=== PATIENT | male | born 1955 | race Caucasian/White ===

== ENCOUNTER → 2020-02-04 12:11 | Outpatient (BNVA) | payer MEDICAID, MEDICARE, SELFPAY | PROVIDERS: PCP Family Medicine; Visit Provider Physician Assistant | DX: Z76.89 Persons encountering health services in other specified circumstances (principal) ==

== ENCOUNTER 2020-05-22 09:25 | Outpatient (REF) | payer MEDICARE, MEDICAID, SELFPAY ==
[2020-05-22 10:19] LABS: MANUAL DIFF FLAG NO
[2020-05-22 10:31] LABS: Estimated Average Glucose 123 mg/dL; Hemoglobin A1C 150.3157 umol/L; Hemoglobin A1c % 5.9 %
[2020-05-22 10:34] LABS: Basophils Absolute Auto 0.1 X10*3/uL (0.0-0.2); Basophils Percent Auto 0.7 % (0-2); Eosinophils Absolute Auto 0.2 X10*3/uL (0.0-0.4); Eosinophils Percent Auto 3.5 % (0-4); Hematocrit 41.5 % (42-52); Hemoglobin 13.6 g/dl (14.0-18.0); Imm Gran Abs Auto 0.02 X10*3/uL (0.00-0.03); Imm Gran Pct Auto 0.3 % (0.0-0.4); Lymphocytes Absolute Auto 2.6 X10*3/uL (1.2-4.9); Lymphocytes Percent Auto 37.2 % (20-40); Mean Corpuscular HGB Conc 32.8 g/dl (31.0-36.0); Mean Corpuscular Hemoglobin 28.8 pg (27.0-33.0); Mean Corpuscular Volume 87.9 fL (80-98); Mean Platelet Volume 10.7 fL (9.4-12.4); Monocytes Absolute Auto 0.5 X10*3/uL (0.1-1.2); Monocytes Percent Auto 7.8 % (2-11); Neutrophils Absolute Auto 3.5 X10*3/uL (2.0-8.3); Neutrophils Percent Auto 50.5 % (45-73); Platelet Count 243 X10*3/uL (160-400); Red Blood Count 4.72 X10*6/uL (4.60-5.80); Red Cell Distribution Width 14.2 % (11.0-16.0); White Blood Count 6.9 X10*3/uL (4.8-10.8)
[2020-05-22 10:57] LABS: Alanine Aminotransferase 13 U/L (0-40); Albumin Level 4.4 g/dL (3.5-5.0); Alkaline Phosphatase 82 U/L (39-117); Anion Gap 11 (12-20); Aspartate Amino Transferase 12 U/L (5-37); Bilirubin Direct 0.2 mg/dL (0.0-0.5); Bilirubin Total 0.5 mg/dL (0.0-1.0); Blood Urea Nitrogen 18 mg/dL (9-16); Calcium 9.2 mg/dL (8.4-10.2); Carbon Dioxide 27 mmol/L (22-29); Chloride 105 mmol/L (96-108); Cholesterol 167 mg/dL; Estimated Glomerular Filt Rate > 60; Glucose Random 113 mg/dL (60-115); HDL Cholesterol 59 mg/dL; LDL Cholesterol Calculated 91 mg/dl; Potassium 4.1 mmol/l (3.3-5.1); Sodium 139 mmol/L (135-145); Triglycerides 87 mg/dL
[2020-05-22 11:04] LABS: Free T4 (Free Thyroxine) 1.18 ng/dL (0.71-1.85); Thyroid Stimulating Hormone 1.04 uIU/mL (0.32-4.0)
[2020-05-22 11:15] LABS: Syphilis Screen Nonreactive (Nonreactive)
[2020-05-22 11:23] LABS: ~HepC Num1 0.18 S/CO (0.00-0.79); ~Hepatitis C Antibody Nonreactive (Nonreactive)
[2020-05-22 11:24] LABS: HBS Num1 0.62 mIU/mL (0-7.99); HBsAGNum1 0.18 S/CO (0.00-0.99); Hepatitis B Surface Antigen Negative (Negative); ~Hepatitis B Surface Antibody NONREACTIVE (Nonreactive)
[2020-05-22 11:33] LABS: HIV AB/AG Nonreactive (Nonreactive); HIV Num 1 0.22 S/CO (0.00-0.99)
[2020-05-22 11:40] LABS: Folate 10.9 ng/mL (> or = 4.0); Vitamin B12 225 pg/mL (200-900)
[2020-05-23 13:26] LABS: C. trachomatis RNA TMA NOT DETECTED (NOT DETECTED); N. gonorrhoeae RNA TMA NOT DETECTED (NOT DETECTED)
== END 2020-05-22 09:26 | disposition home or self-care (01) ==
LOC: HO.LAB 09:25
PROVIDERS: PCP Family Medicine; Visit Provider Family Medicine
DX: R41.3 Other amnesia (principal)
CPT/HCPCS: 36415; 80048; 80061; 80076; 82306; 82607; 82746; 83036; 84439; 84443; 85025; 86706; 86780; 86803; 87340; 87389; 87491; 87591

== ENCOUNTER 2020-05-29 14:15 | Outpatient (REF) | payer MEDICARE, MEDICAID, SELFPAY ==
--- NOTE | 2020-05-29 14:30 | MR_ITS ---
EXAMINATION: MR BRAIN WITHOUT CONTRAST CLINICAL INFORMATION: Progressive supranuclear ophthalmoplegia. COMPARISON: CT head from 09/16/2019. TECHNIQUE: MRI of the brain was obtained using routine sequences without contrast. FINDINGS: No focal restricted diffusion is demonstrated to suggest acute or subacute cerebral ischemia. No evidence of acute or chronic hemorrhagic products on heme-sensitive imaging. Mild basal ganglia mineralization. Scattered periventricular and deep white matter T2 FLAIR hyperintensities consistent with mild to moderate underlying microangiopathy. Proportional prominence of the ventricles and sulcal spaces without evidence of obstructive hydrocephalus. There is relative volume loss of the brain relative to the lselye. No additional abnormal mass effect. No midline shift. Normal appearance of the pituitary gland. Normal appearance of the cerebellum. Normal positioning of the cerebellar tonsils. Normal arterial and venous vascular flow voids are present. Normal, homogeneous marrow signal. Mild mucosal thickening of the paranasal sinuses. No signal abnormalities within the mastoids. MR/MR head/brain wo con IMPRESSION: 1. No acute intracranial abnormalities. 2. Relative decrease in volume of the midbrain relative to the leslye. 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 3. Mild to moderate underlying microangiopathy and generalized cerebral volume loss.
== END 2020-05-29 14:16 | disposition home or self-care (01) ==
LOC: HO.MRI 14:15
PROVIDERS: Visit Provider Psychiatry & Neurology Neurology
DX: G23.1 Progressive supranuclear ophthalmoplegia [Steele-Richardson-Olszewski] (principal)
CPT/HCPCS: 70551

== ENCOUNTER → 2020-07-27 12:56 | Outpatient (REF) | payer MEDICARE, MEDICAID, SELFPAY | LOC: HO.SL 12:56 | PROVIDERS: PCP Family Medicine; Visit Provider Family Medicine | DX: G47.30 Sleep apnea, unspecified (principal) | CPT/HCPCS: 95806 ==

== ENCOUNTER 2020-07-30 12:35 | Outpatient (REF) | payer MEDICARE, MEDICAID, SELFPAY ==
[2020-07-31 10:08] LABS: SARS COV2 PCR INHOUSE NEGATIVE (Negative)
== END 2020-07-30 12:36 | disposition home or self-care (01) ==
LOC: HO.LAB 12:35
PROVIDERS: Visit Provider Internal Medicine
DX: Z20.822 Contact with and (suspected) exposure to COVID-19 (principal)
CPT/HCPCS: C9803; U0003

== ENCOUNTER 2020-11-23 17:47 | Emergency (ER) | payer MEDICARE, MEDICAID, SELFPAY ==
--- NOTE | ~2020-11-23 | CT_ITS ---
EXAM: CT HEAD WITHOUT CONTRAST CT CERVICAL SPINE INDICATION: Head trauma, fall TECHNIQUE: A noncontrast CT scan was performed from the skull base to the vertex. A noncontrast CT scan of the cervical spine was performed from the base of the skull through T1. Coronal and sagittal reformats were obtained at the acquisition workstation. Dose length product is 918 mGy-cm. COMPARISON: Brain MR 05/29/2020, head CT 09/16/2019, head and cervical spine CT 01/09/2019. FINDINGS: Head: No evidence of acute intracranial hemorrhage or extra-axial fluid collection. No evidence of acute territorial infarction. No evidence of mass lesion, mass effect or midline shift. Periventricular and subcortical white matter hypodensities, a nonspecific finding but most commonly due to chronic small vessel ischemic disease. This is similar when compared with prior studies. The ventricles are symmetric in configuration and basal cisterns are patent. The calvarium is intact. Limited views of the paranasal sinuses are unremarkable. Mastoid air cells are well aerated and middle ear cavities are clear. Orbits unremarkable. Cervical Spine: Cervical vertebral bodies are normal in height and alignment. Multilevel degenerative disc disease. Minimal uncovertebral spurring and small anterior degenerative osteophytes throughout the cervical spine. Facet arthropathy. Spinous processes are intact and well aligned. The atlantodens intervals within normal limits. The craniocervical junction is unremarkable. No prevertebral soft tissues swelling. The dens process is intact. The paravertebral muscles and fat planes are preserved. Limited views of the lung apices do not demonstrate any acute findings. The visualized portions of the thyroid gland are unremarkable. No bulky cervical adenopathy. CT/CT cervical spine wo con IMPRESSION: 1. No evidence of acute intracranial abnormality. 2. Degenerative changes of the cervical spine without CT evidence of acute injury.
[2020-11-23 17:54] VITALS: BP 108/80; BP 123/83; PULSE 90; PULSE 94; RESP 16; TEMP 36.6; O2SAT 97; O2SAT 98; BMI 21.4
--- NOTE | 2020-11-23 18:08 | ED_ITS ---
HPI - Fall General Chief Complaint: Fall <CLAU Orosco - Last Filed: 11/23/20 21:18> Stated Complaint: MECHANICAL FALL,LIP LAC,FACIAL PAIN <CLAU Orosco Last Filed: 11/23/20 21:18> Time Seen by Provider: 11/23/20 18:00 <CLAU Orosco - Last Filed: 11/23/20 21:18> Source: patient and EMS <CLAU Orosco Last Filed: 11/23/20 21:18> Mode of arrival: EMS <CLAU Orosco - Last Filed: 11/23/20 21:18> History of Present Illness HPI Narrative: 64-year-old male with a past medical history of asthma, supranuclear o phthalmoplegia, COPD, failure to thrive, opioid abuse, alcohol abuse, cognitive impairment, coming from [facility] for lip/facial lacerations s/p mechanical fall out of bed, patient reports was reaching for dinner tray sitting on edge of bed and lost balance falling forward off bed, + hit head, denies LOC, incident was unwitnessed however staff heard patient/try a fall and found patient on ground awake and alert. Denies headache, CP/SOB, abdominal pain, nausea/vomiting. Does not take anticoagulation Tetanus unknown <CLAU Orosco Last Filed: 11/23/20 21:18> Related Data Home Medications: Home Medications Medication Instructions Recorded Confirmed ammonium lactate 12 % topical cream 1 applic TOPICAL DAILY 01/29/20 02/01/20 baclofen 10 mg tablet 10 mg PO DAILY 01/29/20 02/01/20 clonazepam 0.5 mg tablet 0.25 mg PO BEDTIME 01/29/20 02/01/20 docusate sodium 100 mg capsule 100 mg PO DAILY 01/29/20 02/01/20 fluticasone propionate 100 2 inh INHALATION BID 01/29/20 02/01/20 mcg/actuation blister powder for inhalation ipratropium 18 mcg-albuterol 103 spray INHALATION 01/29/20 02/01/20 mcg/actuation aerosol inhaler loratadine 5 mg/5 mL oral solution 10 ml PO DAILY 01/29/20 02/01/20 omeprazole 20 mg tablet,delayed 40 mg PO DAILY 01/29/20 02/01/20 release oxycodone 10 mg tablet 10 mg PO BID PRN 01/29/20 02/01/20 oxycodone 80 mg tablet,crush 80 mg PO BID 01/29/20 02/01/20 resistant,extended release 12 hr sertraline 50 mg tablet 50 mg PO DAILY 01/29/20 02/01/20 sildenafil 50 mg tablet 50 mg PO DAILY PRN 01/29/20 02/01/20 triamcinolone acetonide 0.1 % 1 applic DENTAL BID 01/29/20 02/01/20 dental paste acetaminophen 325 mg capsule 650 mg PO Q6H PRN 02/04/20 albuterol sulfate 90 mcg/actuation 2 puff INHALATION Q6H PRN 02/04/20 aerosol inhaler aspirin 325 mg tablet 325 mg PO BID 02/04/20 beclomethasone dipropionate 80 mcg INHALATION 02/04/20 mcg/actuation aerosol inhaler bisacodyl 10 mg rectal suppository 10 mg IN DAILY PRN 02/04/20 cholecalciferol (vitamin D3) 125 125 mcg PO DAILY 02/04/20 mcg (5,000 unit) tablet ipratropium 20 mcg-albuterol 100 1 puff INHALATION Q6H 02/04/20 mcg/actuation mist for inhalation magnesium hydroxide 400 mg/5 mL 5 ml PO DAILY PRN 02/04/20 oral suspension morphine 60 mg tablet,oral ONLY mg PO 02/04/20 (not feeding tubes) naloxone 4 mg/actuation nasal spray 4 mg INTRANASAL Q3M PRN 02/04/20 Previous Rx's Medication Instructions Recorded amoxicillin-pot clavulanate 1 tab PO Q12H 7 Days #14 tab 11/23/20 [Augmentin] <CLAU Orosco - Last Filed: 11/23/20 21:18> Allergies/Adverse Reactions: Allergies Allergy/AdvReac Type Severity Reaction Status Date / Time No Known Allergies Allergy Verified 11/23/20 18:01 [No Known Allergies*] <CLAU Orosco - Last Filed: 11/23/20 21:18> Review of Systems Review of Systems: Constitutional: No Fever, No Chills ENT/Mouth: No Nasal Congestion, No sore throat, No Rhinorrhea Eyes: No Eye Pain, No Swelling Cardiovascular: No Chest Pain, No SOB Respiratory: No Cough, No Dyspnea Gastrointestinal: No Nausea, No Vomiting, No Abdominal pain Genitourinary: No Dysuria Musculoskeletal: No joint pain, No Myalgias, No Joint Swelling Skin: + Skin Lesions, No rash Neuro: No Weakness, No Loss of Consciousness, No Dizziness, No Headache <CLAU Orosco Last Filed: 11/23/20 21:18> Yes all other systems are reviewed and are negative <CLAU Orosco - Last Filed: 11/23/20 21:18> [facility] Past Medical History Attestation statement: The following information was validated with the patient. <CLAU Orosco Last Filed: 11/23/20 21:18> Medical History: Medical History Asthma Constipation GERD (gastroesophageal reflux disease) History of fracture of right hip Low back pain <CLAU Orosco - Last Filed: 11/23/20 21:18> Surgical History: Surgical History History of colonoscopy History of hernia repair History of rhinoplasty <CLAU Orosco Last Filed: 11/23/20 21:18> Family History Family History: Family History Father Coronary artery disease Type 2 diabetes mellitus Myocardial infarct Mother Type 2 diabetes mellitus Pancreatic cancer <CLAU Orosco Last Filed: 11/23/20 21:18> Social History Social History: Social History Advance Directives: No Advance Directives Information Provided: No <CLAU Orosco Last Filed: 11/23/20 21:18> Physical Exam Vital Signs: Vital Signs: Last Vital Signs Temp 97.8 F 11/23/20 17:54 Pulse 94 11/23/20 17:54 Resp 16 11/23/20 17:54 BP 108/80 11/23/20 17:54 Pulse Ox 97 11/23/20 17:54 Body Mass Index 21.4 <CLAU Orosco Last Filed: 11/23/20 21:18> Vital Signs: Last Vital Signs Temp 97.8 F 11/23/20 17:54 Pulse 94 11/23/20 17:54 Resp 16 11/23/20 17:54 BP 108/80 11/23/20 17:54 Pulse Ox 97 11/23/20 17:54 Body Mass Index 21.4 <Shemar Downs MD - Last Filed: 11/23/20 20:07> Const: General: cooperative, healthy appearing and no acute distress <CLAU Orosco - Last Filed: 11/23/20 21:18> Orientation/consciousness: patient oriented x3 <CLAU Orosco - Last Filed: 11/23/20 21:18> Limitations: no limitations <CLAU Orosco - Last Filed: 11/23/20 21:18> HENMT: Other: 1 cm Superficial laceration noted lateral to left orbit and 1 cm laceration infraorbitally Deep left upper wedge laceration. No dental fractures or gingival disruption. No loose teeth. <CLAU Orosco - Last Filed: 11/23/20 21:18> Head: Yes normal to inspection, No Tamez's sign and No raccoon eyes <CLAU Orosco - Last Filed: 11/23/20 21:18> Ears: hearing grossly normal bilaterally <CLAU Orosco - Last Filed: 11/23/20 21:18> General nose exam: Normal external nose present <CLAU Orosco - Last Filed: 11/23/20 21:18> Face and sinus: Yes normal facial exam <CLAU Orosco - Last Filed: 11/23/20 21:18> Mouth: Normal oral and palatal mucosa present <CLAU Orosco - Last Filed: 11/23/20 21:18> Eyes: General: appearance normal, both eyes and all related structures <CLAU Orosco - Last Filed: 11/23/20 21:18> EOM: EOMs intact bilaterally <CLAU Orosco - Last Filed: 11/23/20 21:18> Neck: Neck: Yes normal visual inspection and Yes no meningeal signs <CLAU Orosco - Last Filed: 11/23/20 21:18> Resp: Effort & Inspection: normal respiratory effort <Nasrin Pan PA - Last Filed: 11/23/20 21:18> Auscultation: clear to auscultation bilaterally <Nasrin Pan PA - Last Filed: 11/23/20 21:18> Cardio: Rate: regular rate <Nasrin Pan PA - Last Filed: 11/23/20 21:18> Heart sounds: S1 normal heart sound present and S2 normal heart sound present <Nasrin Pan PA - Last Filed: 11/23/20 21:18> GI: Inspection: Yes normal to inspection <Nasrin Pan PA - Last Filed: 11/23/20 21:18> Palpation (GI): Soft to palpation, nontender, no guarding and not rigid <Nasrin Pan PA - Last Filed: 11/23/20 21:18> Skin: Rashes: no rashes <Nasrin Pan PA - Last Filed: 11/23/20 21:18> Wounds: no wounds <Nasrin Pan PA - Last Filed: 11/23/20 21:18> Neuro: Other: Cognition at patient's baseline <CLAU Orosco - Last Filed: 11/23/20 21:18> General: patient oriented x3, tone normal, moves all extremities and no meningeal signs <CLAU Orosco - Last Filed: 11/23/20 21:18> Extrem: General: Yes normal to inspection <Nasrin Pan PA - Last Filed: 11/23/20 21:18> Course Course Course Narrative: CT head/brain wo con IMPRESSION: 1. No evidence of acute intracranial abnormality. 2. Degenerative changes of the cervical spine without CT evidence of acute injury. >> results discussed with patient, plan to DC home back to [facility] <CLAU Orosco - Last Filed: 11/23/20 21:18> discussed plan with MATTIE, lip sutured well. Will dc home <Shemar Downs MD - Last Filed: 11/23/20 20:07> Procedures Laceration Laceration 1: Site: face <CLAU Orosco - Last Filed: 11/23/20 21:18> Side (If applicable): left <Nasrin [facility] [place] - Last Filed: 11/23/20 21:18> Size (cm): 1 <Nasrin Pan PA - Last Filed: 11/23/20 21:18> Description: linear <Nasrin Pan PA - Last Filed: 11/23/20 21:18> Depth: simple, single layer <Nasrin Pan PA - Last Filed: 11/23/20 21:18> Pre-repair: wound explored <Nasrin Pan PA - Last Filed: 11/23/20 21:18> Skin layer closed with: other (dermabond) <Nasrin Viviane PA - Last Filed: 11/23/20 21:18> Laceration 2: Site: face <Nasrin Pan PA - Last Filed: 11/23/20 21:18> Size (cm): 1 <Nasrin Pan PA - Last Filed: 11/23/20 21:18> Description: linear <Nasrin Pan PA - Last Filed: 11/23/20 21:18> Depth: simple, single layer <Nasrin Pan PA - Last Filed: 11/23/20 21:18> Pre-repair: wound explored <Nasrin Pan PA - Last Filed: 11/23/20 21:18> Skin layer closed with: other (Dermabond) <Nasrin Pan PA - Last Filed: 11/23/20 21:18> Laceration 3: Site: lip <Nasrin Pan PA - Last Filed: 11/23/20 21:18> Size (cm): 1 <Nasrin Pan PA - Last Filed: 11/23/20 21:18> Description: irregular, involves edwina border and involves lid margin <Nasrin Pan PA - Last Filed: 11/23/20 21:18> Depth: simple, single layer <Nasrin Pan PA - Last Filed: 11/23/20 21:18> Local Anesthetic: lidocaine 1% <Nasrin Pan PA - Last Filed: 11/23/20 21:18> Amount of anesthesia used (mL): 2 <Nasrin Pan PA - Last Filed: 11/23/20 21:18> Pre-repair: wound explored and irrigated extensively <CLAU Orosco - Last Filed: 11/23/20 21:18> Skin layer closed with: nylon <CLAU Orosco - Last Filed: 11/23/20 21:18> Size (cm): 6-0 <CLAU Orosco - Last Filed: 11/23/20 21:18> Number of sutures: 3 <CLAU Orosco - Last Filed: 11/23/20 21:18> Technique: simple, interrupted <CLAU Orosco - Last Filed: 11/23/20 21:18> MDM - Fall MDM Narrative Medical decision making narrative: 64-year-old male with a past medical history of asthma, supranuclear ophthalmoplegia, COPD, failure to thrive, opioid abuse, alcohol abuse, cognitive impairment, coming from [facility] for lip/facial lacerations s/p mechanical fall out of bed. On exam vital signs stable, NAD/nontoxic-appearing, physical exam as above. Will Dermabond facial lacerations and suture lip laceration. Plan: Head/C-spine CT, repair wounds, update tetanus, prophylactic antibiotic <CLAU Orosco - Last Filed: 11/23/20 21:18> Discharge Plan Discharge Clinical Impression: Fall, Head injury Lip laceration Qualifiers: Encounter type: initial encounter Qualified Code(s): S01.511A - Laceration without foreign body of lip, initial encounter <CLAU Orosco - Last Filed: 11/23/20 21:18> Patient Disposition: er LT <CLAU Orosco - Last Filed: 11/23/20 21:18> Instructions: Facial Laceration (ED) <CLAU Orosco - Last Filed: 11/23/20 21:18> Additional Instructions: You need to return to any emergency department or urgent care to have your 3 stitches taken out in 5 days Augmentin is an antibiotic, please take as prescribed Please eat soft food for the next few days to avoid biting on your swollen lip If area begins to look infected, is red, there is drainage, you fever please return to the ED Your other wounds were skin glued, do not pick at the skin glue, this will fall off on its own Please follow-up with her doctor <CLUA Orosco - Last Filed: 11/23/20 21:18> Prescriptions: New amoxicillin-pot clavulanate [Augmentin] 875-125 mg tablet 1 tab PO Q12H 7 Days Qty: 14 RF: 0 No Action triamcinolone acetonide 0.1 % paste 1 applic dental BID RF: 0 ammonium lactate 12 % cream 1 applic topical DAILY RF: 0 clonazepam [Klonopin] 0.5 mg tablet 0.25 mg PO BEDTIME RF: 0 ipratropium-albuterol 18-103 mcg/actuation aerosol inhalation RF: 0 oxycodone [OxyContin] 80 mg tablet,oral only,ext.rel.12 hr 80 mg PO BID RF: 0 oxycodone 10 mg tablet 10 mg PO BID PRNRF: 0 omeprazole 20 mg tablet,delayed release (DR/EC) 40 mg PO DAILY RF: 0 baclofen 10 mg tablet 10 mg PO DAILY RF: 0 sildenafil [Viagra] 50 mg tablet 50 mg PO DAILY PRNRF: 0 sertraline 50 mg tablet 50 mg PO DAILY RF: 0 loratadine [Claritin] 5 mg/5 mL solution 10 ml PO DAILY RF: 0 docusate sodium [Colace] 100 mg capsule 100 mg PO DAILY RF: 0 Flovent Diskus 100 mcg/actuation blister with device 2 inh inhalation BID RF: 0 <CLAU Orosco - Last Filed: 11/23/20 21:18> Referrals: ED Physician,Generic [Emergency Provider] - 5 days (For suture removal) <CLAU Orosco - Last Filed: 11/23/20 21:18>
[2020-11-23] MEDS: Lidocaine HCl 1 % MPF 5 ML VIAL SUBCUT (19:45)
--- NOTE | 2020-11-23 19:56 | PC.NURSE ---
CLAU Pan at bedside applying dermabond to laceration. Wound cleansed with saline by Clay (EDPCT). Will continue to monitor.
[2020-11-23] MEDS: Amoxicillin/Potassium Clav 875 MG TABLET PO (21:00)
[2020-11-23] MEDS: Diphth,Pertus(ACell),Tet Adult 0.5 ML SYRINGE IM (21:00)
--- NOTE | 2020-11-23 21:33 | PC.NURSE ---
Preparing for transfer back to [facility]. Awaiting ambulance for transfer.
== END 2020-11-23 22:15 ==
PROVIDERS: Emergency Provider Emergency Medicine; PCP Family Medicine
DX: S01.511A Laceration without foreign body of lip, initial encounter (principal); S01.81XA Laceration without foreign body of other part of head, initial encounter; W06.XXXA Fall from bed, initial encounter; Y93.89 Activity, other specified; Y92.122 Bedroom in nursing home as the place of occurrence of the external cause; Y99.9 Unspecified external cause status
CPT/HCPCS: 12013; 70450; 72125; 90471; 90715; 99283; 99284

== ENCOUNTER 2020-12-27 17:47 | Emergency (ER) | payer MEDICARE, MEDICAID, SELFPAY ==
--- NOTE | ~2020-12-27 | XR_ITS ---
EXAMINATION: XR CHEST CLINICAL INFORMATION: Chest pain following trauma in a fall COMPARISON: 01/14/2020 TECHNIQUE: Frontal view of the chest was obtained. FINDINGS: There is stable blunting of the right costophrenic angle. No acute pleural or pulmonary disease is appreciated. The mediastinum is stable. There is no vascular congestion. No rib fracture or other acute chest injury is evident. XR/XR chest 1V IMPRESSION: No active disease in the chest. No significant change.
--- NOTE | ~2020-12-27 | CT_ITS ---
EXAMINATION: CT HEAD WITHOUT CONTRAST CT CERVICAL SPINE WITHOUT CONTRAST CLINICAL INFORMATION: Fall. Head strike. COMPARISON: 11/23/2020 TECHNIQUE: Multidetector CT imaging of the head and cervical spine was performed without the use of intravenous contrast. Multiplanar reformats are reviewed. This CT examination was performed using dose optimization techniques as appropriate, variously including the following: *Automated exposure control *Adjustment of mA and/or kV according to patient size (this includes techniques or standardized protocols for targeted exams where dose is matched to indication/reason for exam; i.e. extremities or head) *Use of iterative reconstruction technique DLP: 1001 mGy-cm. FINDINGS: There is no evidence of acute intracranial hemorrhage or territorial infarction. No abnormal mass effect or midline shift is seen. [place] to white matter differentiation is well preserved. No extra-axial fluid collections are identified. The ventricles are normal in size. Stable patchy subcortical and periventricular white matter low-attenuation changes reflective of chronic white matter small vessel ischemic disease. The osseous structures and soft tissues are normal. The mastoid air cells and visualized portions of the paranasal sinuses are well-aerated. Atlantooccipital alignment is maintained. The vertebral bodies and posterior elements align normally. No acute fracture or subluxation. Vertebral body heights are maintained. Small endplate osteophytes present throughout the cervical spine, most likely from C3 through C7. The cervicomedullary junction and spinal cord are grossly unremarkable. The paraspinal soft tissues are unremarkable. Imaged lung apices mild emphysema. CT/CT cervical spine wo con IMPRESSION: * No acute intracranial pathology. Moderate chronic white matter small vessel ischemic changes. * No cervical spine fracture or malalignment. * Mild emphysema.
--- NOTE | 2020-12-27 18:00 | ECG_ITS ---
Test Reason : FALL Blood Pressure : / mmHG Vent. Rate : 095 BPM Atrial Rate : 095 BPM P-R Int : 106 ms QRS Dur : 086 ms QT Int : 348 ms P-R-T Axes : 079 029 028 degrees QTc Int : 437 ms Sinus rhythm with short AL Minimal voltage criteria for LVH, may be normal variant Borderline ECG When compared with ECG of 14-JAN-2020 19:33, ST no longer elevated in Anterior leads Referred By: Kathleen Rader Electronically Signed By:ROBINA PAINTING
--- NOTE | 2020-12-27 18:00 | ED_ITS ---
HPI - Fall General Chief Complaint: Fall Stated Complaint: fall/head strike Source: patient, EMS and RN notes reviewed Mode of arrival: EMS History of Present Illness HPI Narrative: 65-year-old male from custodial facility presents via EMS for multiple falls, dizziness, increased confusion, abnormal gait and back pain. MD complaint: fall Onset (ago): day(s) (1) Fall from: standing Fall witnessed: no Place fall occurred: skilled nursing/SNF Loss of consciousness: unsure Prolonged down time: unclear Symptoms prior to fall: dizziness Context: tripped/slipped Location of injury: head, neck and back Severity: moderate Quality: aching Related Data Home Medications Medication Instructions Recorded Confirmed ammonium lactate 12 % topical cream 1 applic TOPICAL DAILY 01/29/20 02/01/20 baclofen 10 mg tablet 10 mg PO DAILY 01/29/20 02/01/20 clonazepam 0.5 mg tablet (Klonopin) 0.25 mg PO BEDTIME 01/29/20 02/01/20 docusate sodium 100 mg capsule 100 mg PO DAILY 01/29/20 02/01/20 (Colace) fluticasone propionate 100 2 inh INHALATION BID 01/29/20 02/01/20 mcg/actuation blister powder for inhalation (Flovent Diskus) ipratropium 18 mcg-albuterol 103 spray INHALATION 01/29/20 02/01/20 mcg/actuation aerosol inhaler loratadine 5 mg/5 mL oral solution 10 ml PO DAILY 01/29/20 02/01/20 (Claritin) omeprazole 20 mg tablet,delayed 40 mg PO DAILY 01/29/20 02/01/20 release oxycodone 10 mg tablet 10 mg PO BID PRN 01/29/20 02/01/20 oxycodone 80 mg tablet,crush 80 mg PO BID 01/29/20 02/01/20 resistant,extended release 12 hr (OxyContin) sertraline 50 mg tablet 50 mg PO DAILY 01/29/20 02/01/20 sildenafil 50 mg tablet (Viagra) 50 mg PO DAILY PRN 01/29/20 02/01/20 triamcinolone acetonide 0.1 % 1 applic DENTAL BID 01/29/20 02/01/20 dental paste acetaminophen 325 mg capsule 650 mg PO Q6H PRN 02/04/20 albuterol sulfate 90 mcg/actuation 2 puff INHALATION Q6H PRN 02/04/20 aerosol inhaler aspirin 325 mg tablet 325 mg PO BID 02/04/20 beclomethasone dipropionate 80 mcg INHALATION 02/04/20 mcg/actuation aerosol inhaler bisacodyl 10 mg rectal suppository 10 mg [place] DAILY PRN 02/04/20 cholecalciferol (vitamin D3) 125 125 mcg PO DAILY 02/04/20 mcg (5,000 unit) tablet ipratropium 20 mcg-albuterol 100 1 puff INHALATION Q6H 02/04/20 mcg/actuation mist for inhalation (Combivent Respimat) magnesium hydroxide 400 mg/5 mL 5 ml PO DAILY PRN 02/04/20 oral suspension (Milk of Magnesia) morphine 60 mg tablet,oral ONLY mg PO 02/04/20 (not feeding tubes) naloxone 4 mg/actuation nasal 4 mg INTRANASAL Q3M PRN 02/04/20 spray (Narcan) Previous Rx's Medication Instructions Recorded amoxicillin 875 mg-potassium 1 tab PO Q12H 7 Days #14 tab 11/23/20 clavulanate 125 mg tablet (Augmentin) Allergies Allergy/AdvReac Type Severity Reaction Status Date / Time No Known Allergies Allergy Verified 11/23/20 18:01 [No Known Allergies*] Review of Systems Review of Systems: Constitutional: No Fever, No Chills ENT/Mouth: No Ear Pain, No Hoarseness, No sore throat Eyes: No Eye Pain, No Swelling, No Redness, No Foreign Body Cardiovascular: No Chest Pain, No SOB Respiratory: No Cough, No Dyspnea Gastrointestinal: No Nausea, No Vomiting, No Diarrhea, No abdominal Pain Genitourinary: No Dysuria, No Hematuria Musculoskeletal: positive back pain, No Myalgias, No Joint Swelling Skin: No Skin lacerations, No rash Neuro: No Weakness, No Numbness, No Paresthesias, No Loss of Consciousness, No Dizziness, No Headache Psych: No Anxiety/Panic, No Depression Heme/Lymph: no easy bruising, no Lymphadenopathy Endocrine: No Polyuria, No Polydipsia Yes all other systems are reviewed and are negative PMFSH Past Medical History Attestation statement: The following information was validated with the patient. Source: old records reviewed Medical History Asthma Constipation GERD (gastroesophageal reflux disease) History of fracture of right hip Low back pain Surgical History History of colonoscopy History of hernia repair History of rhinoplasty Family History Family History Father Coronary artery disease Type 2 diabetes mellitus Myocardial infarct Mother Type 2 diabetes mellitus Pancreatic cancer Social History Social History Alcohol intake: never Smoked in Last 30 Days: No Use of substances other than those prescribed or required for medical reasons: No Advance Directives: No Advance Directives Information Provided: Yes Physical Exam Vital Signs: Vital Signs: Last Vital Signs Temp 98.1 F 12/27/20 18:05 Pulse 80 12/27/20 21:04 Resp 16 12/27/20 21:04 BP 118/75 12/27/20 21:04 Pulse Ox 98 12/27/20 19:29 Body Mass Index 21.7 Appearance: Alert. Oriented X3. No acute distress. Slurred and garbled speech per baseline. Eyes: Pupils equal, round and reactive to light. Sclera nonicteric. ENT: Pharynx normal. Neck: Normal inspection. Neck supple. No vertebral pain or step-offs noted. CVS: Normal heart rate and rhythm. Pulses normal. Respiratory: No respiratory distress. Breath sounds normal. Abdomen: Soft and nontender. Skin: Skin warm and dry. Normal skin color. Normal skin turgor. Extremities: No lower extremity edema. Neuro: No motor deficit. No sensory deficit. Possible cognitive deficit. Course Course Course Narrative: 65-year-old male from custodial [facility] presents via EMS for evaluation after multiple falls. Stated that he was dizzy prior his last fall, his last fall was unwitnessed and it is unknown if he lost consciousness or hit his head. Will rule out ACS, CT scan of head and cervical spine, urinalysis and labs. 7:00 p.m. C-spine cleared. CT scan of head and neck are negative for acute findings requiring emergent intervention. collar removed by this [employer]. Labs are unremarkable, glucose elevated at 135, troponin is 0. Urinalysis is negative. Any allergy for falls is unknown. Will return patient to [facility] as we did not find any findings requiring emergent intervention. Patient is able to follow directions, but does have garbled speech per baseline. MDM - Fall Differential Diagnosis Differential diagnosis: Likely syncope, fracture and concussion without loss of consciousness Medical Records Attestation: I reviewed the patient's medical records. Lab Data Attestation: I reviewed the patient's lab results. Result diagrams: 12/27/20 18:15 12/27/20 18:15 Labs: Lab Results 12/27/20 12/27/20 12/27/20 Range/Units 18:15 18:15 18:15 WBC 8.0 (4.8-10.8) X10*3/uL RBC 4.78 (4.60-5.80) X10*6/uL Hgb 14.8 (14.0-18.0) g/dl Hct 44.6 (42-52) % MCV 93.3 (80-98) fL MCH 31.0 (27.0-33.0) pg MCHC 33.2 (31.0-36.0) g/dl RDW 13.1 (11.0-16.0) % Plt Count 222 (160-400) X10*3/uL MPV 10.0 (9.4-12.4) fL Immature Gran % (Auto) 0.9 H (0.0-0.4) % Neut % (Auto) 64.4 (45-73) % Lymph % (Auto) 25.2 (20-40) % [place] % (Auto) 6.3 (2-11) % Eos % (Auto) 2.5 (0-4) % Baso % (Auto) 0.7 (0-2) % Lymph # (Auto) 2.0 (1.2-4.9) X10*3/uL [place] # (Auto) 0.5 (0.1-1.2) X10*3/uL Eos # (Auto) 0.2 (0.0-0.4) X10*3/uL Baso # (Auto) 0.1 (0.0-0.2) X10*3/uL Abs Immat Gran (auto) 0.07 H (0.00-0.03) X10*3/uL Absolute Neuts (auto) 5.2 (2.0-8.3) X10*3/uL Absolute Nucleated RBC 0.000 (0.0-0.012) X10*3/uL Nucleated RBC % (auto) 0.0 (0.0-0.2) /100WBC Sodium 141 (135-145) mmol/L Potassium 4.5 (3.3-5.1) mmol/L Chloride 106 (96-108) mmol/L Carbon Dioxide 26 (22-29) mmol/L Anion Gap 14 (12-20) BUN 16 (9-16) mg/dL Creatinine 1.05 (0.5-1.4) mg/dL Estim Creat Clear Calc 59.9 Estimated GFR > 60 Random Glucose 135 H (60-115) mg/dL Calcium 9.7 (8.4-10.2) mg/dL Troponin I High Sens < 3.5 (<3.5-35.0) ng/L Urine Color Urine Appearance Urine pH (5.0-8.0) Ur Specific [place] (1.005-1.025) Urine Protein (NEG-TRACE) MG/DL Urine Glucose (UA) (NEG) MG/DL Urine Ketones (NEG) MG/DL Urine Blood (NEG) Urine Nitrite (NEG) Ur Leukocyte Esterase (NEG) 12/27/ Range/Units 19:29 WBC (4.8-10.8) X10*3/uL RBC (4.60-5.80) X10*6/uL Hgb (14.0-18.0) g/dl Hct (42-52) % MCV (80-98) fL MCH (27.0-33.0) pg MCHC (31.0-36.0) g/dl RDW (11.0-16.0) % Plt Count (160-400) X10*3/uL MPV (9.4-12.4) fL Immature Gran % (Auto) (0.0-0.4) % Neut % (Auto) (45-73) % Lymph % (Auto) (20-40) % [place] % (Auto) (2-11) % Eos % (Auto) (0-4) % Baso % (Auto) (0-2) % Lymph # (Auto) (1.2-4.9) X10*3/uL [place] # (Auto) (0.1-1.2) X10*3/uL Eos # (Auto) (0.0-0.4) X10*3/uL Baso # (Auto) (0.0-0.2) X10*3/uL Abs Immat Gran (auto) (0.00-0.03) X10*3/uL Absolute Neuts (auto) (2.0-8.3) X10*3/uL Absolute Nucleated RBC (0.0-0.012) X10*3/uL Nucleated RBC % (auto) (0.0-0.2) /100WBC Sodium (135-145) mmol/L Potassium (3.3-5.1) mmol/L Chloride (96-108) mmol/L Carbon Dioxide (22-29) mmol/L Anion Gap (12-20) BUN (9-16) mg/dL Creatinine (0.5-1.4) mg/dL Estim Creat Clear Calc Estimated GFR Random Glucose (60-115) mg/dL Calcium (8.4-10.2) mg/dL Troponin I High Sens (<3.5-35.0) ng/L Urine Color DARK YELLOW Urine Appearance CLEAR Urine pH 7.0 (5.0-8.0) Ur Specific [place] 1.015 (1.005-1.025) Urine Protein NEG (NEG-TRACE) MG/DL Urine Glucose (UA) NEG (NEG) MG/DL Urine Ketones NEG (NEG) MG/DL Urine Blood NEG (NEG) Urine Nitrite NEG (NEG) Ur Leukocyte Esterase NEG (NEG) Imaging Data Chest x-ray: Attestation: I personally reviewed and interpreted this imaging study as follows: Radiologist's impression: EXAMINATION: XR CHEST CLINICAL INFORMATION: Chest pain following trauma in a fall COMPARISON: 01/14/2020 TECHNIQUE: Frontal view of the chest was obtained. FINDINGS: There is stable blunting of the right costophrenic angle. No acute pleural or pulmonary disease is appreciated. The mediastinum is stable. There is no vascular congestion. No rib fracture or other acute chest injury is evident. IMPRESSION: No active disease in the chest. No significant change. CT head cervical spine: Attestation: I personally reviewed and interpreted this imaging study as follows: Radiologist's impression: EXAMINATION: CT HEAD WITHOUT CONTRAST CT CERVICAL SPINE WITHOUT CONTRAST CLINICAL INFORMATION: Fall. Head strike.? COMPARISON: 11/23/2020 TECHNIQUE: Multidetector CT imaging of the head and cervical spine was performed without the use of intravenous contrast. Multiplanar reformats are reviewed. This CT examination was performed using dose optimization techniques as appropriate, variously including the following: *Automated exposure control *Adjustment of mA and/or kV according to patient size (this includes techniques or standardized protocols for targeted exams where dose is matched to indication/reason for exam; i.e. extremities or head) *Use of iterative reconstruction technique DLP: 1001 mGy-cm. FINDINGS: There is no evidence of acute intracranial hemorrhage or territorial infarction. No abnormal mass effect or midline shift is seen. Wesley to white matter differentiation is well preserved. No extra-axial fluid collections are identified. The ventricles are normal in size. Stable patchy subcortical and periventricular white matter low-attenuation changes reflective of chronic white matter small vessel ischemic disease. The osseous structures and soft tissues are normal. The mastoid air cells and visualized portions of the paranasal sinuses are well-aerated. Atlantooccipital alignment is maintained. The vertebral bodies and posterior elements align normally. No acute fracture or subluxation. Vertebral body heights are maintained. Small endplate osteophytes present throughout the cervical spine, most likely from C3 through C7. The cervicomedullary junction and spinal cord are grossly unremarkable. The paraspinal soft tissues are unremarkable. Imaged lung apices mild emphysema. ? CT/CT cervical spine wo con IMPRESSION: *? No acute intracranial pathology. Moderate chronic white matter small vessel ischemic changes. *? No cervical spine fracture or malalignment. *? Mild emphysema. ECG Data Attestation: I personally reviewed and interpreted this ECG as follows: ECG interpretation date: 12/27/20 ECG interpretation time: 23:08 Prior ECG tracings: available for review Interpretation: Vent. Rate : 095 BPM ? ? Atrial Rate : 095 BPM ?? P-R Int : 106 ms? QRS Dur : 086 ms ? ? QT Int : 348 ms ? ? ? P-R-T Axes : 079 029 028 degrees ?? QTc Int : 437 ms ? Sinus rhythm with short [place] Minimal voltage criteria for LVH, may be normal variant Borderline ECG When compared with ECG of 14-JAN-2020 19:33, ST no longer elevated in Anterior leads Discharge Plan Discharge Clinical Impression: Dizziness Fall Qualifiers: Encounter type: initial encounter Qualified Code(s): W19.XXXA - Unspecified fall, initial encounter Patient Disposition: er [facility] Instructions: Fall Prevention for Older Adults (ED), Dizziness (ED) Additional Instructions: You were evaluated for a fall. Your CT scan of head and neck are negative for acute findings requiring emergent intervention. Your chest x-ray shows emphysema which is a chronic finding Your lab values are normal. Your EKG is normal sinus rhythm with shortened [place] interval, with no significant changes when compared to January 14, 2020. Your cardiac enzymes, troponins are negative. Your urinalysis is normal. Please follow-up with primary care. Continue all medications as previously prescribed Thank you for choosing this emergency department for evaluation. Please follow-up with primary care physician as needed. Return to the emergency department for any new, concerning, or worsening symptoms. Prescriptions: No Action amoxicillin-pot clavulanate [Augmentin] 875-125 mg tablet 1 tab PO Q12H 7 Days Qty: 14 RF: 0 triamcinolone acetonide 0.1 % paste 1 applic dental BID RF: 0 ammonium lactate 12 % cream 1 applic topical DAILY RF: 0 clonazepam [Klonopin] 0.5 mg tablet 0.25 mg PO BEDTIME RF: 0 ipratropium-albuterol 18-103 mcg/actuation aerosol inhalation RF: 0 oxycodone [OxyContin] 80 mg tablet,oral only,ext.rel.12 hr 80 mg PO BID RF: 0 oxycodone 10 mg tablet 10 mg PO BID PRNRF: 0 omeprazole 20 mg tablet,delayed release (DR/EC) 40 mg PO DAILY RF: 0 baclofen 10 mg tablet 10 mg PO DAILY RF: 0 sildenafil [Viagra] 50 mg tablet 50 mg PO DAILY PRNRF: 0 sertraline 50 mg tablet 50 mg PO DAILY RF: 0 loratadine [Claritin] 5 mg/5 mL solution 10 ml PO DAILY RF: 0 docusate sodium [Colace] 100 mg capsule 100 mg PO DAILY RF: 0 Flovent Diskus 100 mcg/actuation blister with device 2 inh inhalation BID RF: 0 Interventions: ED Discharge Assessment Last Done: 12/27/20 21:08 Discharge Date/Time: 12/27/20 21:09
[2020-12-27 18:05] VITALS: BP 139/84; BP 139/86; PULSE 96; PULSE 97; RESP 25; TEMP 36.7; O2SAT 100; O2SAT 99; BMI 21.7
[2020-12-27 18:19] LABS: MANUAL DIFF FLAG NO
[2020-12-27 18:30] LABS: Basophils Absolute Auto 0.1 X10*3/uL (0.0-0.2); Basophils Percent Auto 0.7 % (0-2); Eosinophils Absolute Auto 0.2 X10*3/uL (0.0-0.4); Eosinophils Percent Auto 2.5 % (0-4); Hematocrit 44.6 % (42-52); Hemoglobin 14.8 g/dl (14.0-18.0); Imm Gran Abs Auto 0.07 X10*3/uL (0.00-0.03); Imm Gran Pct Auto 0.9 % (0.0-0.4); Lymphocytes Percent Auto 25.2 % (20-40); Mean Corpuscular HGB Conc 33.2 g/dl (31.0-36.0); Mean Corpuscular Volume 93.3 fL (80-98); Monocytes Absolute Auto 0.5 X10*3/uL (0.1-1.2); Monocytes Percent Auto 6.3 % (2-11); Neutrophils Absolute Auto 5.2 X10*3/uL (2.0-8.3); Neutrophils Percent Auto 64.4 % (45-73); Platelet Count 222 X10*3/uL (160-400); Red Blood Count 4.78 X10*6/uL (4.60-5.80); Red Cell Distribution Width 13.1 % (11.0-16.0)
[2020-12-27 18:44] LABS: Anion Gap 14 (12-20); Blood Urea Nitrogen 16 mg/dL (9-16); Calcium 9.7 mg/dL (8.4-10.2); Carbon Dioxide 26 mmol/L (22-29); Chloride 106 mmol/L (96-108); Creatinine Clr Calc Pharmacy 59.9; Estimated Glomerular Filt Rate > 60; Glucose Random 135 mg/dL (60-115); Potassium 4.5 mmol/L (3.3-5.1); Sodium 141 mmol/L (135-145)
[2020-12-27 18:51] LABS: Troponin-I High Sensitivity < 3.5 ng/L (<3.5-35.0)
[2020-12-27 19:29] VITALS: BP 110/80; PULSE 92; RESP 16; O2SAT 98
--- NOTE | 2020-12-27 19:30 | PC.NURSE ---
Pt denies pain, offers no complaints. UA obtained and sent. VSS.
[2020-12-27 19:37] LABS: Glucose Urine UA NEG (NEG); Leukocyte Esterase Urine NEG (NEG); Nitrite Urine NEG (NEG); Specific Gravity - Urine 1.015 (1.005-1.025); Urine Blood NEG (NEG); Urine Ketones NEG (NEG); Urine Protein NEG (NEG-TRACE)
[2020-12-27 19:43] LABS: Appearance Urine CLEAR; Color Urine DARK YELLOW
--- NOTE | 2020-12-27 20:55 | PC.NURSE ---
EMS called for transport back to [facility].
[2020-12-27 21:04] VITALS: BP 118/75; PULSE 80; RESP 16
--- NOTE | 2020-12-27 21:05 | PC.NURSE ---
EMS at bedside for transport back to [facility].
== END 2020-12-27 21:09 | disposition skilled nursing facility (03) ==
PROVIDERS: Nurse Practitioner Family; Emergency Provider Internal Medicine
DX: R42 Dizziness and giddiness (principal); R07.9 Chest pain, unspecified; M54.2 Cervicalgia; R51.9 Headache, unspecified; Z79.899 Other long term (current) drug therapy; Z91.81 History of falling
CPT/HCPCS: 36415; 70450; 71045; 72125; 80048; 81003; 84484; 85025; 93005; 99284

== ENCOUNTER 2021-02-28 11:29 | Emergency (ER) | payer MEDICARE, MEDICAID, SELFPAY ==
--- NOTE | ~2021-02-28 | XR_ITS ---
EXAMINATION: XR CHEST CLINICAL INFORMATION: Epigastric pain and shortness of breath COMPARISON: Previous chest x-rays most recent November [address] August 2019 TECHNIQUE: 2 views of the chest were obtained. FINDINGS: The cardiac and mediastinal contours are stable. The lungs are clear. There is blunting at the right lateral costophrenic angle. This is unchanged from prior exams. The left costophrenic angle is sharp. There are mild degenerative changes of the spine. XR/XR chest 2V IMPRESSION: Blunting at the right lateral costophrenic angle similar to previous exams. No evidence for acute disease in the chest.
[2021-02-28 11:44] VITALS: BP 126/78; BP 146/87; PULSE 102; PULSE 70; RESP 20; TEMP 36.6; O2SAT 97; BMI 21.6
--- NOTE | 2021-02-28 11:48 | ED.CHESTPAIN ---
HPI - Chest Pain General Chief Complaint: Chest Pain Stated Complaint: cp Time Seen by Provider: 02/28/21 11:42 Source: patient Mode of arrival: EMS Limitations: no limitations History of Present Illness HPI narrative: epigastric pain for past few days states that he can't breath when he lays down complaint: other (epigastric pain) Onset (ago): day(s) Timing of current episode: episodic Prior episodes: Yes Onset: during rest Pain location: epigastric Severity: mild Exacerbating factors: nothing Risk Factors Coronary artery disease risk factors: none Related Data Home Medications Medication Instructions Recorded Confirmed ammonium lactate 12 % topical cream 1 applic TOPICAL DAILY 01/29/20 02/01/20 baclofen 10 mg tablet 10 mg PO DAILY 01/29/20 02/01/20 clonazepam 0.5 mg tablet (Klonopin) 0.25 mg PO BEDTIME 01/29/20 02/01/20 docusate sodium 100 mg capsule 100 mg PO DAILY 01/29/20 02/01/20 (Colace) fluticasone propionate 100 2 inh INHALATION BID 01/29/20 02/01/20 mcg/actuation blister powder for inhalation (Flovent Diskus) ipratropium 18 mcg-albuterol 103 spray INHALATION 01/29/20 02/01/20 mcg/actuation aerosol inhaler loratadine 5 mg/5 mL oral solution 10 ml PO DAILY 01/29/20 02/01/20 (Claritin) omeprazole 20 mg tablet,delayed 40 mg PO DAILY 01/29/20 02/01/20 release oxycodone 10 mg tablet 10 mg PO BID PRN 01/29/20 02/01/20 oxycodone 80 mg tablet,crush 80 mg PO BID 01/29/20 02/01/20 resistant,extended release 12 hr (OxyContin) sertraline 50 mg tablet 50 mg PO DAILY 01/29/20 02/01/20 sildenafil 50 mg tablet (Viagra) 50 mg PO DAILY PRN 01/29/20 02/01/20 triamcinolone acetonide 0.1 % 1 applic DENTAL BID 01/29/20 02/01/20 dental paste acetaminophen 325 mg capsule 650 mg PO Q6H PRN 02/04/20 albuterol sulfate 90 mcg/actuation 2 puff INHALATION Q6H PRN 02/04/20 aerosol inhaler aspirin 325 mg tablet 325 mg PO BID 02/04/20 beclomethasone dipropionate 80 mcg INHALATION 02/04/20 mcg/actuation aerosol inhaler bisacodyl 10 mg rectal suppository 10 mg [place] DAILY PRN 02/04/20 cholecalciferol (vitamin D3) 125 125 mcg PO DAILY 02/04/20 mcg (5,000 unit) tablet ipratropium 20 mcg-albuterol 100 1 puff INHALATION Q6H 02/04/20 mcg/actuation mist for inhalation (Combivent Respimat) magnesium hydroxide 400 mg/5 mL 5 ml PO DAILY PRN 02/04/20 oral suspension (Milk of Magnesia) morphine 60 mg tablet,oral ONLY mg PO 02/04/20 (not feeding tubes) naloxone 4 mg/actuation nasal 4 mg INTRANASAL Q3M PRN 02/04/20 spray (Narcan) Previous Rx's Medication Instructions Recorded amoxicillin 875 mg-potassium 1 tab PO Q12H 7 Days #14 tab 11/23/20 clavulanate 125 mg tablet (Augmentin) Allergies Allergy/AdvReac Type Severity Reaction Status Date / Time No Known Allergies Allergy Verified 11/23/20 18:01 [No Known Allergies*] Review of Systems Constitutional: Constitutional: Reports no additional constitutional complaints Eyes: Eyes: Reports no additional eye complaints ENT: Denies dizziness Cardiovascular: Cardiovascular: Reports no additional cardiovascular complaints Respiratory: Respiratory: Reports as per HPI Gastrointestinal: Gastrointestinal: Reports no additional gastrointestinal complaints Musculoskeletal: Musculoskeletal: Reports no additional musculoskeletal complaints Integumentary/Breasts: Skin/Breast: Denies rash Neurologic: Reports system reviewed and no additional complaints, except as documented, Denies dizziness and Denies Sensory deficit (Neuro) Psychiatric: Psychiatric: Denies anxiety [facility] Past Medical History Medical History Asthma Constipation GERD (gastroesophageal reflux disease) History of fracture of right hip Low back pain Surgical History History of colonoscopy History of hernia repair History of rhinoplasty Family History Family History Father Coronary artery disease Type 2 diabetes mellitus Myocardial infarct Mother Type 2 diabetes mellitus Pancreatic cancer Social History Social History Alcohol intake: never Advance Directives: Yes Advance Directives on File: Yes Advance Directives Date on File: 12/28/20 Physical Exam Vital Signs: Vital Signs: Last Vital Signs Temp 98 F 02/28/21 11:44 Pulse 102 H 02/28/21 11:44 Resp 20 02/28/21 11:44 BP 146/87 H 02/28/21 11:44 Pulse Ox 97 02/28/21 11:44 Body Mass Index 21.6 Const: Other: male looking older than stated age, bizarre affect, Nutritional Appearance: average body habitus Orientation/consciousness: oriented to person Limitations: no limitations HENMT: Head: Yes normal to inspection Ears: external ears normal General nose exam: Normal external nose present Mouth: Normal oral and palatal mucosa present and oropharynx normal Throat: Yes posterior oropharynx normal Eyes: General: appearance normal, both eyes and all related structures Neck: Other: supple Neck: Yes normal visual inspection Chest: Chest palpation & inspection: normal inspection of the chest Resp: Auscultation: clear to auscultation bilaterally Cardio: Jugular venous distension: no JVD Rate: regular rate Rhythm: regular rhythm Heart sounds: S1 normal heart sound present and S2 normal heart sound present GI: Inspection: Yes normal to inspection Palpation (GI): Soft to palpation, nontender and No hepatosplenomegaly present Auscultation: normal bowel sounds : General: Yes no CVA tenderness Back/Spine/Pelvis: Back: no CVA tenderness Skin: General skin exam: no rashes or lesions noted Neuro: General: oriented to person Cranial nerves: Yes CN's II-XII intact bilaterally Motor exam (neuro): 5/5 motor strength present throughout Sensory Exam: No Sensory deficit (Neuro) Extrem: General: Yes normal to inspection Psych: Appearance: grossly normal Course Reevaluation(s) Reevaluation #1: The history did not sound like cardiac ischemia, EKG blood work and CXR did not show evidence of cardiac ischemia or pulmonary process, LFTs normal. Will dc with follow up Time: 13:37 MDM - Chest Pain Lab Data Result diagrams: 02/28/21 12:27 02/28/21 12:27 Labs: Lab Results 10/31/21 10/31/21 10/31/21 Range/Units 12:27 12:27 12:27 WBC 9.3 (4.8-10.8) X10*3/uL RBC 4.85 (4.60-5.80) X10*6/uL Hgb 14.6 (14.0-18.0) g/dl Hct 44.1 (42.0-52.0) % MCV 90.9 (80.0-98.0) fL MCH 30.1 (27.0-33.0) pg MCHC 33.1 (31.0-36.0) g/dl RDW 13.1 (11.0-16.0) % Plt Count 225 (160-400) X10*3/uL MPV 9.6 (9.4-12.4) fL Immature Gran % (Auto) 0.3 (0.0-0.4) % Neut % (Auto) 67.1 (45-73) % Lymph % (Auto) 23.7 (20-40) % [place] % (Auto) 7.3 (2-11) % Eos % (Auto) 1.3 (0-4) % Baso % (Auto) 0.3 (0-2) % Lymph # (Auto) 2.2 (1.2-4.9) X10*3/uL [place] # (Auto) 0.7 (0.1-1.2) X10*3/uL Eos # (Auto) 0.1 (0.0-0.4) X10*3/uL Baso # (Auto) 0.0 (0.0-0.2) X10*3/uL Abs Immat Gran (auto) 0.03 (0.00-0.03) X10*3/uL Absolute Neuts (auto) 6.26 (2.0-8.3) x10*3/uL Absolute Nucleated RBC 0.000 (0.0-0.012) X10*3/uL Nucleated RBC % (auto) 0.0 (0.0-0.2) /100WBC Sodium 141 (135-145) mmol/L Potassium 4.2 (3.3-5.1) mmol/L Chloride 106 (96-108) mmol/L Carbon Dioxide 28 (22-29) mmol/L Anion Gap 11 L (12-20) BUN 15 (9-16) mg/dL Creatinine 1.25 (0.5-1.4) mg/dL Estim Creat Clear Calc 51.4 Estimated GFR 58 Random Glucose 109 (60-115) mg/dL Calcium 9.6 (8.4-10.2) mg/dL Total Bilirubin 0.5 (0.0-1.0) mg/dL Direct Bilirubin 0.2 (0.0-0.5) mg/dL AST 12 (5-37) U/L ALT 11 (0-40) U/L Alkaline Phosphatase 75 (39-117) U/L Troponin I High Sens < 3.5 (<3.5-35.0) ng/L Total Protein 7.1 (6.5-8.0) g/dL Albumin 4.5 (3.5-5.0) g/dL Lipase 31 (8-78) U/L Imaging Data Chest x-ray: Radiologist's impression: FINDINGS: The cardiac and mediastinal contours are stable. The lungs are clear. There is blunting at the right lateral costophrenic angle. This is unchanged from prior exams. The left costophrenic angle is sharp. There are mild degenerative changes of the spine. XR/XR chest 2V IMPRESSION: Blunting at the right lateral costophrenic angle similar to previous exams. No evidence for acute disease in the chest. ECG Data ECG #1: Attestation: I personally reviewed and interpreted this ECG as follows: Interpretation: normal sinus rate of 90, no st or twave changes Discharge Plan Discharge Clinical Impression: Atypical chest pain, Abdominal pain, epigastric Patient Disposition: Home, Self-Care Instructions: Abdominal Pain (ED), Epigastric Pain (ED) Prescriptions: No Action amoxicillin-pot clavulanate [Augmentin] 875-125 mg tablet 1 tab PO Q12H 7 Days Qty: 14 RF: 0 triamcinolone acetonide 0.1 % paste 1 applic dental BID RF: 0 ammonium lactate 12 % cream 1 applic topical DAILY RF: 0 clonazepam [Klonopin] 0.5 mg tablet 0.25 mg PO BEDTIME RF: 0 ipratropium-albuterol 18-103 mcg/actuation aerosol inhalation RF: 0 oxycodone [OxyContin] 80 mg tablet,oral only,ext.rel.12 hr 80 mg PO BID RF: 0 oxycodone 10 mg tablet 10 mg PO BID PRNRF: 0 omeprazole 20 mg tablet,delayed release (DR/EC) 40 mg PO DAILY RF: 0 baclofen 10 mg tablet 10 mg PO DAILY RF: 0 sildenafil [Viagra] 50 mg tablet 50 mg PO DAILY PRNRF: 0 sertraline 50 mg tablet 50 mg PO DAILY RF: 0 loratadine [Claritin] 5 mg/5 mL solution 10 ml PO DAILY RF: 0 docusate sodium [Colace] 100 mg capsule 100 mg PO DAILY RF: 0 Flovent Diskus 100 mcg/actuation blister with device 2 inh inhalation BID RF: 0 Referrals: Sim Brown MD [Primary Care Provider] - 1 week
--- NOTE | 2021-02-28 11:56 | ECG_ITS ---
Test Reason : CHEST PAIN Blood Pressure : / mmHG Vent. Rate : 092 BPM Atrial Rate : 092 BPM P-R Int : 110 ms QRS Dur : 086 ms QT Int : 346 ms P-R-T Axes : 078 048 024 degrees QTc Int : 427 ms Sinus rhythm with short MS Otherwise normal ECG When compared with ECG of 27-DEC-2020 18:20, No significant change was found Referred By: Shemar Downs Electronically Signed By:VÍCTOR DAVE MD
[2021-02-28 12:32] LABS: MANUAL DIFF FLAG NO
[2021-02-28 12:36] LABS: Basophils Percent Auto 0.3 % (0-2); Eosinophils Absolute Auto 0.1 X10*3/uL (0.0-0.4); Eosinophils Percent Auto 1.3 % (0-4); Hematocrit 44.1 % (42.0-52.0); Hemoglobin 14.6 g/dl (14.0-18.0); Imm Gran Abs Auto 0.03 X10*3/uL (0.00-0.03); Imm Gran Pct Auto 0.3 % (0.0-0.4); Lymphocytes Absolute Auto 2.2 X10*3/uL (1.2-4.9); Lymphocytes Percent Auto 23.7 % (20-40); Mean Corpuscular HGB Conc 33.1 g/dl (31.0-36.0); Mean Corpuscular Hemoglobin 30.1 pg (27.0-33.0); Mean Corpuscular Volume 90.9 fL (80.0-98.0); Mean Platelet Volume 9.6 fL (9.4-12.4); Monocytes Absolute Auto 0.7 X10*3/uL (0.1-1.2); Monocytes Percent Auto 7.3 % (2-11); Neutrophils Absolute Auto 6.26 x10*3/uL (2.0-8.3); Neutrophils Percent Auto 67.1 % (45-73); Platelet Count 225 X10*3/uL (160-400); Red Blood Count 4.85 X10*6/uL (4.60-5.80); Red Cell Distribution Width 13.1 % (11.0-16.0); White Blood Count 9.3 X10*3/uL (4.8-10.8)
[2021-02-28 12:52] LABS: Alanine Aminotransferase 11 U/L (0-40); Albumin Level 4.5 g/dL (3.5-5.0); Alkaline Phosphatase 75 U/L (39-117); Anion Gap 11 (12-20); Aspartate Amino Transferase 12 U/L (5-37); Bilirubin Direct 0.2 mg/dL (0.0-0.5); Bilirubin Total 0.5 mg/dL (0.0-1.0); Blood Urea Nitrogen 15 mg/dL (9-16); Calcium 9.6 mg/dL (8.4-10.2); Carbon Dioxide 28 mmol/L (22-29); Chloride 106 mmol/L (96-108); Creatinine Clr Calc Pharmacy 51.4; Estimated Glomerular Filt Rate 58; Glucose Random 109 mg/dL (60-115); Lipase 31 U/L (8-78); Potassium 4.2 mmol/L (3.3-5.1); Sodium 141 mmol/L (135-145); Total Protein 7.1 g/dL (6.5-8.0)
[2021-02-28 12:56] LABS: Troponin-I High Sensitivity < 3.5 ng/L (<3.5-35.0)
== END 2021-02-28 14:18 | disposition home or self-care (01) ==
PROVIDERS: Emergency Provider Emergency Medicine; PCP Family Medicine
DX: R07.89 Other chest pain (principal); R10.13 Epigastric pain; K21.9 Gastro-esophageal reflux disease without esophagitis; Z79.899 Other long term (current) drug therapy
CPT/HCPCS: 36415; 71046; 80048; 80076; 83690; 84484; 85025; 93005; 99283

== ENCOUNTER 2021-03-09 13:49 | Emergency (ER) | payer MEDICARE, MEDICAID, SELFPAY ==
--- NOTE | ~2021-03-09 | XR_ITS ---
EXAMINATION: XR CHEST CLINICAL INFORMATION: History of fall. COMPARISON: Chest done on 02/28/2021. TECHNIQUE: Frontal view of the chest was obtained. FINDINGS: Persistent stable mild blunting of the right lateral CP angle is noted, unchanged since 02/28/2021. Asymmetric low lung volume is also noted within the right hemithorax, unchanged. Aerated lung shultz bilaterally otherwise appear unremarkable, unchanged. The cardiac mediastinal silhouette is. Overall, no significant change since 02/28/2021. XR/XR chest 1V IMPRESSION: No radiographic evidence of acute cardiopulmonary disease, unchanged since 02/28/2021.
--- NOTE | ~2021-03-09 | XR_ITS ---
EXAMINATION: XR LUMBOSACRAL SPINE CLINICAL INFORMATION: Status post fall. COMPARISON: CT of the abdomen and pelvis done on 07/28/2014. TECHNIQUE: Three views of the lumbosacral spine. FINDINGS: Mild mid lumbar dextroscoliosis is present. Mild flattening of L1, L2 and mild anterior compression deformity of L3 vertebral bodies is seen. Decreased disc height, endplate osteophyte formation, consistent with multilevel moderate degenerative spondylosis. The prespinal soft tissues are remarkable for atherosclerotic disease of the aorta and iliac arteries. Posterior appendages are intact. Overall, no significant change since 07/28/2014. XR/XR lumbar spine 2-3V IMPRESSION: Scoliotic and multilevel degenerative spondylosis and mild platyspondylia of the lumbar vertebrae, overall the lumbosacral spine appear similar to prior study dated 07/28/2014.
[2021-03-09 14:08] VITALS: BP 114/76; BP 125/83; PULSE 88; PULSE 95; RESP 17; TEMP 36.7; O2SAT 96; O2SAT 97; BMI 22.6
--- NOTE | 2021-03-09 14:47 | ED_ITS ---
HPI - Fall General Chief Complaint: Fall Stated Complaint: FALL @8AM,NO C/O FROM PT,FAMILY WANTS EVAL PER EMS Time Seen by Provider: 03/09/21 14:05 Source: patient and EMS Mode of arrival: EMS Limitations: no limitations History of Present Illness HPI Narrative: A 65-year-old male came in by ambulance for evaluation after unwitnessed fall. Patient came from [facility] by ambulance for evaluation after fall, patient is a poor historian, stated that he walked to the bathroom this morning with a walker and he fell down, patient decline head injury or neck pain, patient is complaining of a mild low back pain. Related Data Home Medications Medication Instructions Recorded Confirmed ammonium lactate 12 % topical cream 1 applic TOPICAL DAILY 01/29/20 02/01/20 baclofen 10 mg tablet 10 mg PO DAILY 01/29/20 02/01/20 clonazepam 0.5 mg tablet (Klonopin) 0.25 mg PO BEDTIME 01/29/20 02/01/20 docusate sodium 100 mg capsule 100 mg PO DAILY 01/29/20 02/01/20 (Colace) fluticasone propionate 100 2 inh INHALATION BID 01/29/20 02/01/20 mcg/actuation blister powder for inhalation (Flovent Diskus) ipratropium 18 mcg-albuterol 103 spray INHALATION 01/29/20 02/01/20 mcg/actuation aerosol inhaler loratadine 5 mg/5 mL oral solution 10 ml PO DAILY 01/29/20 02/01/20 (Claritin) omeprazole 20 mg tablet,delayed 40 mg PO DAILY 01/29/20 02/01/20 release oxycodone 10 mg tablet 10 mg PO BID PRN 01/29/20 02/01/20 oxycodone 80 mg tablet,crush 80 mg PO BID 01/29/20 02/01/20 resistant,extended release 12 hr (OxyContin) sertraline 50 mg tablet 50 mg PO DAILY 01/29/20 02/01/20 sildenafil 50 mg tablet (Viagra) 50 mg PO DAILY PRN 01/29/20 02/01/20 triamcinolone acetonide 0.1 % 1 applic DENTAL BID 01/29/20 02/01/20 dental paste acetaminophen 325 mg capsule 650 mg PO Q6H PRN 02/04/20 albuterol sulfate 90 mcg/actuation 2 puff INHALATION Q6H PRN 02/04/20 aerosol inhaler aspirin 325 mg tablet 325 mg PO BID 02/04/20 beclomethasone dipropionate 80 mcg INHALATION 02/04/20 mcg/actuation aerosol inhaler bisacodyl 10 mg rectal suppository 10 mg [place] DAILY PRN 02/04/20 cholecalciferol (vitamin D3) 125 125 mcg PO DAILY 02/04/20 mcg (5,000 unit) tablet ipratropium 20 mcg-albuterol 100 1 puff INHALATION Q6H 02/04/20 mcg/actuation mist for inhalation (Combivent Respimat) magnesium hydroxide 400 mg/5 mL 5 ml PO DAILY PRN 02/04/20 oral suspension (Milk of Magnesia) morphine 60 mg tablet,oral ONLY mg PO 02/04/20 (not feeding tubes) naloxone 4 mg/actuation nasal 4 mg INTRANASAL Q3M PRN 02/04/20 spray (Narcan) Previous Rx's Medication Instructions Recorded amoxicillin 875 mg-potassium 1 tab PO Q12H 7 Days #14 tab 11/23/20 clavulanate 125 mg tablet (Augmentin) Allergies Allergy/AdvReac Type Severity Reaction Status Date / Time No Known Allergies Allergy Verified 11/23/20 18:01 [No Known Allergies*] Review of Systems Review of Systems: All other systems are reviewed and are negative Constitutional: Reports as per HPI and Reports no additional constitutional complaints Eyes: Reports as per HPI and Reports no additional eye complaints Reports system reviewed and no additional complaints, except as documented Cardiovascular: Reports as per HPI and Reports no additional cardiovascular complaints Respiratory: Reports as per HPI and Reports no additional respiratory complaints Gastrointestinal: Reports as per HPI and Reports no additional gastrointestinal complaints Genitourinary: Reports no additional female genitourinary complaints Musculoskeletal: Reports no additional musculoskeletal complaints Skin/Breast: Reports system reviewed and no additional complaints, except as docu Psychiatric: Reports no additional psychiatric complaints Endocrine: Reports no additional endocrine complaints Hematologic/Lymphatic: Reports no additional hematologic/lymphatic complaints Allergic/Immunologic: Reports no additional allergic/immunologic complaints Reports system reviewed and no additional complaints, except as documented and Reports Abnormal speech present. [facility] Past Medical History Medical History Asthma Constipation GERD (gastroesophageal reflux disease) History of fracture of right hip Low back pain Surgical History History of colonoscopy History of hernia repair History of rhinoplasty Family History Family History Father Coronary artery disease Type 2 diabetes mellitus Myocardial infarct Mother Type 2 diabetes mellitus Pancreatic cancer Social History Social History Alcohol intake: never Advance Directives: Yes Advance Directives on File: Yes Advance Directives Date on File: 12/28/20 Physical Exam Vital Signs: Vital Signs: Last Vital Signs Temp 98.0 F 03/09/21 14:08 Pulse 95 03/09/21 14:08 Resp 17 03/09/21 14:08 BP 125/83 03/09/21 14:08 Pulse Ox 97 03/09/21 14:08 Body Mass Index 22.6 Vital signs have been reviewed as appeared to be correct. Blood pressure normal. Heart rate normal. Respiration rate normal. Temperature normal. Oxygen saturation normal. Appearance: Alert. Oriented X3. No acute distress. Head: Normal external exam. Normocephalic. Atraumatic. No Tamez signs noted. No raccoon eyes noted Eyes: PERRLA. EOMI. Conjunctiva and sclera normal. Eyelids normal. ENT: TM's Normal. Pharynx normal. Uvula midline. Moist mucous membranes. No trismus noted. No drooling noted. No muffled voice noted. Neck: Normal inspection. Neck supple. FROM. No adenopathy. Thyroid Normal. No me ningeal signs. No neck mass noted. CVS: Normal heart rate and rhythm. Heart sound normal. No murmurs noted. Pulses normal throughout. Respiratory: No respiratory distress. Painless inspiration. Breath sounds normal. No wheezes/rales/rhonchi noted. Chest nontender. No accessory muscle usage noted or decreased air movement noted. Abdomen: Soft and nontender. Bowel sounds normal in all 4 quadrants. No distention noted. No organomegaly noted. No visible injury noted. Back: No CVA tenderness. Full range of motion noted. Skin: Skin warm and dry. Normal skin color. Normal skin turgor. No ra shes/lesions/lacerations noted. Extremities: No lower extremity edema. Extremities exhibit normal range of motion. Extremities nontender. Neuro: Oriented X 3. Cranial nerve exam: II-XII are grossly intact No motor deficit. No sensory deficit. Reflexes normal. Course Course Course Narrative: Assessment and plan. 65-year-old male status post mechanical fall complaining of back pain, x-rays unremarkable, patient otherwise has no complain will discharge the patient back home. MDM - Fall Medical Records Attestation: I reviewed the patient's medical records. Lab Data Attestation: I reviewed the patient's lab results. Imaging Data Chest x-ray: Radiologist's impression: No radiographic evidence of acute cardiopulmonary disease, unchanged since 02/28/2021. ? Lumbar spine x-ray: Radiologist's impression: Scoliotic and multilevel degenerative spondylosis and mild platyspondylia of the lumbar vertebrae, overall the lumbosacral spine appear similar to prior study dated 07/28/2014. Discharge Plan Discharge Clinical Impression: Fall, Lumbar back sprain Patient Disposition: Home, Self-Care Instructions: Back Pain (ED) Prescriptions: No Action amoxicillin-pot clavulanate [Augmentin] 875-125 mg tablet 1 tab PO Q12H 7 Days Qty: 14 RF: 0 triamcinolone acetonide 0.1 % paste 1 applic dental BID RF: 0 ammonium lactate 12 % cream 1 applic topical DAILY RF: 0 clonazepam [Klonopin] 0.5 mg tablet 0.25 mg PO BEDTIME RF: 0 ipratropium-albuterol 18-103 mcg/actuation aerosol inhalation RF: 0 oxycodone [OxyContin] 80 mg tablet,oral only,ext.rel.12 hr 80 mg PO BID RF: 0 oxycodone 10 mg tablet 10 mg PO BID PRNRF: 0 omeprazole 20 mg tablet,delayed release (DR/EC) 40 mg PO DAILY RF: 0 baclofen 10 mg tablet 10 mg PO DAILY RF: 0 sildenafil [Viagra] 50 mg tablet 50 mg PO DAILY PRNRF: 0 sertraline 50 mg tablet 50 mg PO DAILY RF: 0 loratadine [Claritin] 5 mg/5 mL solution 10 ml PO DAILY RF: 0 docusate sodium [Colace] 100 mg capsule 100 mg PO DAILY RF: 0 Flovent Diskus 100 mcg/actuation blister with device 2 inh inhalation BID RF: 0 Referrals: Sim Brown MD [Primary Care Provider] - 2 days
== END 2021-03-09 18:53 | disposition home or self-care (01) ==
PROVIDERS: Emergency Provider Emergency Medicine; PCP Family Medicine
DX: S33.5XXA Sprain of ligaments of lumbar spine, initial encounter (principal); W01.0XXA Fall on same level from slipping, tripping and stumbling without subsequent striking against object, initial encounter; Y93.89 Activity, other specified; Y92.091 Bathroom in other non-institutional residence as the place of occurrence of the external cause; Y99.9 Unspecified external cause status
CPT/HCPCS: 71045; 72100; 99283

== ENCOUNTER 2021-07-23 18:13 | Emergency (ER) | payer MEDICARE, MEDICAID, SELFPAY ==
--- NOTE | ~2021-07-23 | CT_ITS ---
CT HEAD WITHOUT IV CONTRAST CT CERVICAL SPINE WITHOUT IV CONTRAST INDICATION: Status post fall. COMPARISON: Head CT 12/27/[address] from the same day. TECHNIQUE: Multidetector CT acquisitions of the head and cervical spine were obtained without IV contrast. Multiplanar reformats were acquired and utilized for image interpretation. This CT examination was performed using dose optimization techniques as appropriate, variously including the following: *Automated exposure control *Adjustment of mA and/or kV according to patient size (this includes techniques or standardized protocols for targeted exams where dose is matched to indication/reason for exam; i.e. extremities or head) *Use of iterative reconstruction technique FINDINGS: HEAD: Mild chronic microangiopathy. There is no intracranial hemorrhage, hydrocephalus, extra-axial surface collection, midline shift, or other herniation pattern. Wesley to white matter differentiation is diffusely maintained without evidence of an evolved acute territorial infarct. The basilar cisterns are preserved. No significant soft tissue abnormality. No acute osseous abnormality. The paranasal sinuses and the mastoid air cells are well aerated. CERVICAL SPINE: There is multilevel cervical spondylosis. Endplate Schmorl's nodes at C3, C4, and C5. No acute fractures and no acute subluxations. Multilevel endplate osteophytes. Hypertrophic degenerative changes involving the atlantodental interval. No prevertebral soft tissue swelling. CT/CT cervical spine wo con IMPRESSION: 1. No acute intracranial abnormality. Mild chronic microangiopathy. 2. No acute osseous abnormality within the cervical spine. Multilevel cervical spondylosis.
--- NOTE | ~2021-07-23 | CT_ITS ---
CT HEAD WITHOUT IV CONTRAST CT CERVICAL SPINE WITHOUT IV CONTRAST INDICATION: Status post fall. COMPARISON: Head CT 12/27/[address] from the same day. TECHNIQUE: Multidetector CT acquisitions of the head and cervical spine were obtained without IV contrast. Multiplanar reformats were acquired and utilized for image interpretation. This CT examination was performed using dose optimization techniques as appropriate, variously including the following: *Automated exposure control *Adjustment of mA and/or kV according to patient size (this includes techniques or standardized protocols for targeted exams where dose is matched to indication/reason for exam; i.e. extremities or head) *Use of iterative reconstruction technique FINDINGS: HEAD: Mild chronic microangiopathy. There is no intracranial hemorrhage, hydrocephalus, extra-axial surface collection, midline shift, or other herniation pattern. Wesley to white matter differentiation is diffusely maintained without evidence of an evolved acute territorial infarct. The basilar cisterns are preserved. No significant soft tissue abnormality. No acute osseous abnormality. The paranasal sinuses and the mastoid air cells are well aerated. CERVICAL SPINE: There is multilevel cervical spondylosis. Endplate Schmorl's nodes at C3, C4, and C5. No acute fractures and no acute subluxations. Multilevel endplate osteophytes. Hypertrophic degenerative changes involving the atlantodental interval. No prevertebral soft tissue swelling. CT/CT head/brain wo con IMPRESSION: 1. No acute intracranial abnormality. Mild chronic microangiopathy. 2. No acute osseous abnormality within the cervical spine. Multilevel cervical spondylosis.
[2021-07-23 18:27] VITALS: BP 131/77; PULSE 102; RESP 32; TEMP 36.7; O2SAT 98
--- NOTE | 2021-07-23 18:27 | PC.NURSE ---
dominic 71 kg
[2021-07-23 18:30] VITALS: PULSE 100; RESP 16; TEMP 36.8; O2SAT 98; BMI 24.7
--- NOTE | 2021-07-23 18:45 | ED.FALL ---
HPI - Fall General Chief Complaint: Fall Stated Complaint: fall Time Seen by Provider: 07/23/21 18:33 Source: patient and EMS Mode of arrival: EMS Limitations: no limitations History of Present Illness HPI Narrative: [facility] was trying to get up from the bed to get his walker unable to reach to it lost balance and fell hitting his head to the corner of the door frame no loss of consciousness patient aware of a fall and was able to tell the whole event. Patient is alert oriented x3 no staff witnessed the fall patient denies any complaint at this time Related Data Home Medications Medication Instructions Recorded Confirmed ammonium lactate 12 % topical cream 1 applic TOPICAL DAILY 01/29/20 02/01/20 baclofen 10 mg tablet 10 mg PO DAILY 01/29/20 02/01/20 clonazepam 0.5 mg tablet (Klonopin) 0.25 mg PO BEDTIME 01/29/20 02/01/20 docusate sodium 100 mg capsule 100 mg PO DAILY 01/29/20 02/01/20 (Colace) fluticasone propionate 100 2 inh INHALATION BID 01/29/20 02/01/20 mcg/actuation blister powder for inhalation (Flovent Diskus) ipratropium 18 mcg-albuterol 103 spray INHALATION 01/29/20 02/01/20 mcg/actuation aerosol inhaler loratadine 5 mg/5 mL oral solution 10 ml PO DAILY 01/29/20 02/01/20 (Claritin) omeprazole 20 mg tablet,delayed 40 mg PO DAILY 01/29/20 02/01/20 release oxycodone 10 mg tablet 10 mg PO BID PRN 01/29/20 02/01/20 oxycodone 80 mg tablet,crush 80 mg PO BID 01/29/20 02/01/20 resistant,extended release 12 hr (OxyContin) sertraline 50 mg tablet 50 mg PO DAILY 01/29/20 02/01/20 sildenafil 50 mg tablet (Viagra) 50 mg PO DAILY PRN 01/29/20 02/01/20 triamcinolone acetonide 0.1 % 1 applic DENTAL BID 01/29/20 02/01/20 dental paste acetaminophen 325 mg capsule 650 mg PO Q6H PRN 02/04/20 albuterol sulfate 90 mcg/actuation 2 puff INHALATION Q6H PRN 02/04/20 aerosol inhaler aspirin 325 mg tablet 325 mg PO BID 02/04/20 beclomethasone dipropionate 80 mcg INHALATION 02/04/20 mcg/actuation aerosol inhaler bisacodyl 10 mg rectal suppository 10 mg NV DAILY PRN 02/04/20 cholecalciferol (vitamin D3) 125 125 mcg PO DAILY 02/04/20 mcg (5,000 unit) tablet ipratropium 20 mcg-albuterol 100 1 puff INHALATION Q6H 02/04/20 mcg/actuation mist for inhalation (Combivent Respimat) magnesium hydroxide 400 mg/5 mL 5 ml PO DAILY PRN 02/04/20 oral suspension (Milk of Magnesia) morphine 60 mg tablet,oral ONLY mg PO 02/04/20 (not feeding tubes) naloxone 4 mg/actuation nasal 4 mg INTRANASAL Q3M PRN 02/04/20 spray (Narcan) Previous Rx's Medication Instructions Recorded amoxicillin 875 mg-potassium 1 tab PO Q12H 7 Days #14 tab 11/23/20 clavulanate 125 mg tablet (Augmentin) Allergies Allergy/AdvReac Type Severity Reaction Status Date / Time No Known Allergies Allergy Verified 11/23/20 18:01 [No Known Allergies*] Review of Systems Review of Systems: Yes all other systems are reviewed and are negative PMFSH Past Medical History Medical History Asthma Constipation GERD (gastroesophageal reflux disease) History of fracture of right hip Low back pain Surgical History History of colonoscopy History of hernia repair History of rhinoplasty Family History Family History Father Coronary artery disease Type 2 diabetes mellitus Myocardial infarct Mother Type 2 diabetes mellitus Pancreatic cancer Social History Social History Alcohol intake: never Advance Directives: Yes Advance Directives on File: Yes Advance Directives Date on File: 12/28/20 Physical Exam Vital Signs: Vital Signs: Last Vital Signs Temp 98.2 F 07/23/21 18:30 Pulse 100 07/23/21 18:30 Resp 16 07/23/21 18:30 BP 131/77 07/23/21 18:27 Pulse Ox 98 07/23/21 18:30 BMI result Body Mass Index 24.7 Appearance: Alert. Oriented X3. No acute distress. Eyes: PERRLA, No Nystagmus HEENT: Pharynx normal. Oral Mucosa moist atraumatic normocephalic Neck: Normal inspection. Neck supple. No midline tenderness CVS: Normal heart rate and rhythm. Pulses normal. Respiratory: No respiratory distress. Equal air entry bilateral, Abdomen: Soft and nontender. Bowel sounds are present, Skin: Skin warm and dry. Normal skin color. Normal skin turgor. Extremities: No lower extremity edema. No calf tenderness Neuro: Oriented X 3. No motor deficit. No sensory deficit.No cerebellar signs , cranial nerves II-XII intact MDM - Fall MDM Narrative Medical decision making narrative: CT scan of the C-spine and head negative for any acute will discharge [facility] Discharge Plan Discharge Clinical Impression: Fall Patient Disposition: Xfer LTC Transfer Details: To [facility] Instructions: Fall Prevention for Older Adults (ED) Additional Instructions: Care and cautions advised CT scan of the head and C-spine negative Prescriptions: No Action amoxicillin-pot clavulanate [Augmentin] 875-125 mg tablet 1 tab PO Q12H 7 Days Qty: 14 0RF triamcinolone acetonide 0.1 % paste 1 applic dental BID 0RF Rx Instructions: use after food and/or drink and/or oral hygiene ammonium lactate 12 % cream 1 applic topical DAILY 0RF clonazepam [Klonopin] 0.5 mg tablet 0.25 mg PO BEDTIME 0RF Rx Instructions: administer 30 minutes before bedtime ipratropium-albuterol 18-103 mcg/actuation aerosol inhalation 0RF oxycodone [OxyContin] 80 mg tablet,oral only,ext.rel.12 hr 80 mg PO BID 0RF oxycodone 10 mg tablet 10 mg PO BID PRN0RF omeprazole 20 mg tablet,delayed release (DR/EC) 40 mg PO DAILY 0RF baclofen 10 mg tablet 10 mg PO DAILY 0RF sildenafil [Viagra] 50 mg tablet 50 mg PO DAILY PRN0RF Rx Instructions: administer 30 minutes to 4 hours before activity sertraline 50 mg tablet 50 mg PO DAILY 0RF loratadine [Claritin] 5 mg/5 mL solution 10 ml PO DAILY 0RF docusate sodium [Colace] 100 mg capsule 100 mg PO DAILY 0RF Flovent Diskus 100 mcg/actuation blister with device 2 inh inhalation BID 0RF Interventions: ED Discharge Assessment Last Done: 07/23/21 21:38 Discharge Date/Time: 07/23/21 21:39
== END 2021-07-23 21:39 ==
PROVIDERS: Emergency Provider Internal Medicine
DX: Z71.1 Person with feared health complaint in whom no diagnosis is made (principal); Z91.81 History of falling
CPT/HCPCS: 70450; 72125; 99283; 99284

== ENCOUNTER 2021-12-22 13:51 | Emergency (ER) | payer MEDICARE, MEDICAID, SELFPAY ==
--- NOTE | ~2021-12-22 | CT_ITS ---
EXAMINATION: CT HEAD WITHOUT CONTRAST CLINICAL INFORMATION: Tremulous activity. Altered mental status. COMPARISON: 07/23/2021 TECHNIQUE: Contiguous axial imaging was performed from the skull base to vertex without intravenous contrast. This CT examination was performed using dose optimization techniques as appropriate, variously including the following: * Automated exposure control * Adjustment of mA and/or kV according to patient size (this includes techniques or standardized protocols for targeted exams where dose is matched to indication/reason for exam; i.e. extremities or head) Use of iterative reconstruction technique DLP: 724 mGy-cm. FINDINGS: There is no evidence of acute intracranial hemorrhage or territorial infarction. No abnormal mass effect or midline shift is seen. Wesley to white matter differentiation is well preserved. No extra-axial fluid collections are identified. No hydrocephalus. Proportional prominence of the ventricles and sulcal spaces is consistent with mild volume loss. Patchy periventricular and deep white matter hypoattenuation is consistent with mild small vessel ischemic changes. The osseous structures and soft tissues are normal. The mastoid air cells and visualized portions of the paranasal sinuses are well aerated. CT/CT head/brain wo con IMPRESSION: No acute intracranial pathology.
--- NOTE | ~2021-12-22 | XR_ITS ---
EXAMINATION: XR CHEST CLINICAL INFORMATION: Tachypnea. Tachycardia. Question infiltrate. COMPARISON: 03/09/2021 TECHNIQUE: 2 views of the chest were obtained. FINDINGS: The lungs are well expanded. Small right pleural effusion. Minimal right perihilar linear atelectasis. No pneumothorax. The cardiomediastinal silhouette is within normal limits. Mild degenerative changes of the spine. XR/XR chest 2V IMPRESSION: Small right-sided pleural effusion. Right perihilar linear atelectasis.
[2021-12-22 14:07] VITALS: BP 115/74; PULSE 88; RESP 20; TEMP 36.7; O2SAT 97
[2021-12-22 14:13] VITALS: BP 111/71; PULSE 120; TEMP 36.6; BMI 19.3
--- NOTE | 2021-12-22 14:13 | ED_ITS ---
HPI - General Adult General Chief complaint: Altered Mental Status Stated complaint: SEPSIS ALERT Time Seen by Provider: 12/22/21 14:03 Source: RN notes reviewed Limitations: altered mental status History of Present Illness HPI narrative: patient presents to the emergency department via EMS from [facility]. Reports of tachycardia with heart rate in the 160s, noting patient to have tremors, stiffness, Dilated pupils, and hyperventilation. Patient is a full code. Patient unable to provide any history, asked why he is here he states I do not know. patient with no complaints. Related Data Home Medications Medication Instructions Recorded Confirmed acetaminophen 650 mg 650 mg PO Q12H 12/22/21 12/22/21 tablet,extended release bisacodyl 10 mg rectal suppository 10 mg OK DAILY PRN Constipation 12/22/21 12/22/21 coenzyme Q10 150 mg capsule (Co 150 mg PO DAILY 12/22/21 12/22/21 Q-10) cyanocobalamin (vitamin B-12) 500 500 mcg PO DAILY 12/22/21 12/22/21 mcg tablet divalproex 500 mg tablet,extended 1 tab PO BID 12/22/21 12/22/21 release 24 hr escitalopram oxalate 10 mg tablet 1 tab PO DAILY 12/22/21 12/22/21 fluticasone furoate 100 1 ea inhalation DAILY 12/22/21 12/22/21 mcg-vilanterol 25 mcg/dose inhalation powder gabapentin 100 mg capsule 100 mg PO TID 12/22/21 12/22/21 ipratropium bromide 42 mcg (0.06 2 spray intranasal TID 12/22/21 12/22/21 %) nasal spray lorazepam 1 mg tablet (Ativan) 1 mg PO TID PRN Anxiety 12/22/21 12/22/21 magnesium hydroxide 400 mg/5 mL 400 mg PO DAILY PRN Constipation 12/22/21 12/22/21 oral suspension (Milk of Magnesia) magnesium oxide 400 mg PO DAILY 12/22/21 12/22/21 melatonin 3 mg tablet 6 mg PO BEDTIME 12/22/21 12/22/21 olanzapine 5 mg tablet 1 tab PO DAILY PRN Anxiety 12/22/21 12/22/21 olanzapine 5 mg tablet 1 tab PO TID PRN Anxiety 12/22/21 12/22/21 riboflavin (vitamin B2) 100 mg 400 mg PO DAILY 12/22/21 12/22/21 tablet (Vitamin B-2) tamsulosin 0.4 mg capsule 1 cap PO DAILY 12/22/21 12/22/21 Allergies Allergy/AdvReac Type Severity Reaction Status Date / Time No Known Allergies Allergy Verified 11/23/20 18:01 [No Known Allergies*] FOR[facility]LY [facility] Past Medical History Attestation statement: The following information was validated with the patient. Source: old records reviewed Medical History Asthma Constipation GERD (gastroesophageal reflux disease) History of fracture of right hip Low back pain Surgical History History of colonoscopy History of hernia repair History of rhinoplasty Family History Family History Father Coronary artery disease Type 2 diabetes mellitus Myocardial infarct Mother Type 2 diabetes mellitus Pancreatic cancer Social History Social History Alcohol intake: never Advance Directives: Yes Advance Directives on File: Yes Advance Directives Date on File: 12/28/20 Physical Exam ED Vital Signs: Vital Signs - 24 hr 12/22/21 14:07 12/22/21 14:13 12/22/21 14:15 Temperature 98.1 F 97.8 F 97.4 F Pulse Rate 88 Respiratory Rate 20 Blood Pressure 115/74 Pulse Oximetry 97 Oxygen Delivery Method Room Air 12/22/21 15:55 Temperature Pulse Rate 80 Respiratory Rate 14 Blood Pressure Pulse Oximetry 98 Oxygen Delivery Method Room Air BMI result Body Mass Index 19.3 Appearance: Alert.? oriented to person and place, disoriented to time. No acute distress.?Normal affect. Eyes: Pupils equal, round and reactive to light.? 2 mm bilaterally. No nystagmus. EOMI. ENT: Pharynx normal.?? Neck: Normal inspection.? Neck supple.?? CVS: Heart sounds normal. Normal heart rate and rhythm.? Pulses normal.?? Respiratory: No respiratory distress.? Rhonchi Abdomen: Soft and non-tender. Normoactive bowel sounds. No pulsatile mass.?? Skin: Skin warm and dry.? Normal skin color.??? Extremities: No lower extremity edema.? Neuro: Moves all extremities spontaneously. Sensation intact bilaterally. CN II- XII intact. No focal neuro deficits. Course Course Course Narrative: Patient is a 66-year-old male with a past medical history of dementia, asthma, COPD, right hip fracture, failure to thrive, GERD, headaches, opioid use, alcohol abuse, depression, frequent falls. Presents to the emergency department today concerns per staff for tremors, stiffness, hyperventilation, and tachycardia. Upon arrival to ED patient is not tachycardic, afebrile, no tachypnea, no hypoxia, normotensive. Pupils are not dilated they are 2 mm bilaterally. Moving all extremities independently. No notable tremors. Review of medical records with no indication of prior seizures or seizure disorder. Unable to make contact with staff from alf facility it is unclear at this time because of the extent of tremors Whether this is seizure-like activity. Will obtain CT of the head, basic labs, EKG, blood cultures and lactic acid at that is unclear with the patient was febrile or whether he receiv ed Tylenol prior to his arrival here. Reevaluation(s) Reevaluation #1: CBC unremarkable, no leukocytosis or anemia. CMP is unremarkable. Troponin <3.5 EKG reveals sinus rhythm with short OK consistent prior EKGs, no acute ischemic findings. lactic acid is 2.7, no signs of systemic hypoperfusion, no current indications for sepsis/infectious process. Urinalysis without evidence of infection straight catheter utilized for specimen collection likely the cause of hematuria. initial presenting symptoms appear to be very nonspecific, patient not exhibiting any of the prior mention symptoms while in the emergency department. No focal neurological deficits. Remains hemodynamically stable. Alert and verbal conversive with staff. Ambulatory with Use of a walker and staff assistance for short distance, per staff he typically remains in his wheelchair and is a 1 assist transfer. patient stable for discharge back to facility. Medical Decision Making Medical Records Medical records reviewed: Yes I reviewed the patient's medical records. Lab Data Lab results reviewed: Yes I reviewed the patient's lab results. Result diagrams: 12/22/21 14:33 12/22/21 14:33 Labs: Lab Results 12/22/21 12/22/21 12/22/21 Range/Units 14:33 14:33 14:33 WBC 6.3 (4.8-10.8) X10*3/uL RBC 4.77 (4.60-5.80) X10*6/uL Hgb 14.1 (14.0-18.0) g/dl Hct 43.5 (42.0-52.0) % MCV 91.2 (80.0-98.0) fL MCH 29.6 (27.0-33.0) pg MCHC 32.4 (31.0-36.0) g/dl RDW 13.1 (11.0-16.0) % Plt Count 191 (160-400) X10*3/uL MPV 10.0 (9.4-12.4) fL Immature Gran % (Auto) 0.3 (0.0-0.4) % Neut % (Auto) 62.8 (45-73) % Lymph % (Auto) 27.2 (20-40) % [place] % (Auto) 7.0 (2-11) % Eos % (Auto) 1.9 (0-4) % Baso % (Auto) 0.8 (0-2) % Lymph # (Auto) 1.7 (1.2-4.9) X10*3/uL [place] # (Auto) 0.4 (0.1-1.2) X10*3/uL Eos # (Auto) 0.1 (0.0-0.4) X10*3/uL Baso # (Auto) 0.1 (0.0-0.2) X10*3/uL Abs Immat Gran (auto) 0.02 (0.00-0.03) X10*3/uL Absolute Neuts (auto) 3.9 (2.0-8.3) x10*3/uL Absolute Nucleated RBC 0.000 (0.0-0.012) X10*3/uL Nucleated RBC % (auto) 0.0 (0.0-0.2) /100WBC Sodium 142 (135-145) mmol/L Potassium 4.5 (3.3-5.1) mmol/L Chloride 105 (96-108) mmol/L Carbon Dioxide 27 (22-29) mmol/L Anion Gap 15 (12-20) BUN 15 (9-16) mg/dL Creatinine 1.00 (0.5-1.4) mg/dL Estim Creat Clear Calc 61.8 Estimated GFR > 60 Random Glucose 125 H (60-115) mg/dL Lactic Acid (0.5-2.0) mmol/L Calcium 9.2 (8.4-10.2) mg/dL Magnesium 2.0 (1.6-2.6) mg/dL Total Bilirubin 0.3 (0.0-1.0) mg/dL AST 11 (5-37) U/L ALT 14 (0-40) U/L Alkaline Phosphatase 68 (39-117) U/L Troponin I High Sens < 3.5 (<3.5-35.0) ng/L Total Protein 6.6 (6.5-8.0) g/dL Albumin 4.0 (3.5-5.0) g/dL Urine Color Urine Appearance Urine pH (5.0-8.0) Ur Specific [place] (1.005-1.025) Urine Protein (Neg-Trace) mg/dL Urine Glucose (UA) (Negative) mg/dL Urine Ketones (Negative) mg/dL Urine Blood (Negative) Urine Nitrite (Negative) Ur Leukocyte Esterase (Negative) Urine RBC (0-2) /HPF Urine WBC (0-5) /HPF Ur Squamous Epith Cells (0-2) /HPF Urine Bacteria (None Seen) Hyaline Casts (0-2) /LPF COVID-19 (FLOYD) (Negative) COVID-19 Clin Com 12/22/21 12/22/21 12/22/21 Range/Units 14:33 14:33 16:07 WBC (4.8-10.8) X10*3/uL RBC (4.60-5.80) X10*6/uL Hgb (14.0-18.0) g/dl Hct (42.0-52.0) % MCV (80.0-98.0) fL MCH (27.0-33.0) pg MCHC (31.0-36.0) g/dl RDW (11.0-16.0) % Plt Count (160-400) X10*3/uL MPV (9.4-12.4) fL Immature Gran % (Auto) (0.0-0.4) % Neut % (Auto) (45-73) % Lymph % (Auto) (20-40) % [place]oll[place] % (Auto) (2-11) % Eos % (Auto) (0-4) % Baso % (Auto) (0-2) % Lymph # (Auto) (1.2-4.9) X10*3/uL [place] # (Auto) (0.1-1.2) X10*3/uL Eos # (Auto) (0.0-0.4) X10*3/uL Baso # (Auto) (0.0-0.2) X10*3/uL Abs Immat Gran (auto) (0.00-0.03) X10*3/uL Absolute Neuts (auto) (2.0-8.3) x10*3/uL Absolute Nucleated RBC (0.0-0.012) X10*3/uL Nucleated RBC % (auto) (0.0-0.2) /100WBC Sodium (135-145) mmol/L Potassium (3.3-5.1) mmol/L Chloride (96-108) mmol/L Carbon Dioxide (22-29) mmol/L Anion Gap (12-20) BUN (9-16) mg/dL Creatinine (0.5-1.4) mg/dL Estim Creat Clear Calc Estimated GFR Random Glucose (60-115) mg/dL Lactic Acid 2.7 H* (0.5-2.0) mmol/L Calcium (8.4-10.2) mg/dL Magnesium (1.6-2.6) mg/dL Total Bilirubin (0.0-1.0) mg/dL AST (5-37) U/L ALT (0-40) U/L Alkaline Phosphatase (39-117) U/L Troponin I High Sens (<3.5-35.0) ng/L Total Protein (6.5-8.0) g/dL Albumin (3.5-5.0) g/dL Urine Color Dark Yellow Urine Appearance Clear Urine pH 7.5 (5.0-8.0) Ur Specific [place] 1.020 (1.005-1.025) Urine Protein Negative (Neg-Trace) mg/dL Urine Glucose (UA) Negative (Negative) mg/dL Urine Ketones Trace (Negative) mg/dL Urine Blood Small (1+) H (Negative) Urine Nitrite Negative (Negative) Ur Leukocyte Esterase Negative (Negative) Urine RBC 11-20 H (0-2) /HPF Urine WBC 0-5 (0-5) /HPF Ur Squamous Epith Cells 0-2 (0-2) /HPF Urine Bacteria None Seen (None Seen) Hyaline Casts 0-2 (0-2) /LPF COVID-19 ([facility]OYD) Negative (Negative) COVID-19 Clin Com See Note Imaging Data Chest x-ray: Radiologist's impression: XR/XR chest 2V IMPRESSION: Small right-sided pleural effusion. Right perihilar linear atelectasis. CT scan - head: Radiologist's impression: CT/CT head/brain wo con IMPRESSION: No acute intracranial pathology. ECG Data Attestation: I personally reviewed and interpreted this ECG as follows: Prior ECG tracings: available for review Interpretation: Rate: 86 Rhythm:? sinus rhythm [place]:? normal Normal P waves.? short ERIC, 108 Normal QRS complex.?? ST T wave :?? no ST elevation, no ST depression, no T-wave inversion qTC: 421 prior studies:? The study has been interpreted contemporaneously by me. Discharge Plan Discharge Clinical Impression: Tremor Patient Disposition: Home, Self-Care Additional Instructions: Patient was evaluated in the emergency department after reported concerns for tremors, stiffness, hyperventilation, and dilated pupils. Patient had none of the aforementioned symptoms while in the emergency department. Patient without any reported complaints. No neurological deficits. Patient may return back to the emergency department with any new or worsening symptoms or concerns Prescriptions: No Action riboflavin (vitamin B2) [Vitamin B-2] 100 mg Tablet 400 mg PO DAILY olanzapine 5 mg tablet 1 tab PO DAILY PRN (Reason: Anxiety) olanzapine 5 mg tablet 1 tab PO TID PRN (Reason: Anxiety) Co Q-10 150 mg Capsule 150 mg PO DAILY melatonin 3 mg Tablet 6 mg PO BEDTIME acetaminophen [Tylenol Extended Release] 650 mg Tablet Extended Release 650 mg PO Q12H cyanocobalamin (vitamin B-12) 500 mcg Tablet 500 mcg PO DAILY tamsulosin 0.4 mg capsule 1 cap PO DAILY divalproex 500 mg tablet extended release 24 hr 1 tab PO BID gabapentin 100 mg Capsule 100 mg PO TID lorazepam [Ativan] 1 mg Tablet 1 mg PO TID PRN (Reason: Anxiety) ipratropium bromide 42 mcg (0.06 %) [place],Non-Aerosol 2 spray INTRANASAL TID Rx Instructions: administer into each nostril escitalopram oxalate 10 mg tablet 1 tab PO DAILY fluticasone furoate-vilanterol 100-25 mcg/dose blister with device 1 ea inhalation DAILY magnesium oxide 400 mg magnesium Tablet 400 mg PO DAILY magnesium hydroxide [Milk of Magnesia] 400 mg/5 mL Suspension 400 mg PO DAILY PRN (Reason: Constipation) bisacodyl 10 mg Suppository 10 mg OK DAILY PRN (Reason: Constipation)
[2021-12-22 14:15] VITALS: TEMP 36.3
--- NOTE | 2021-12-22 14:16 | ECG_ITS ---
Test Reason : TACARDYA Blood Pressure : / mmHG Vent. Rate : 086 BPM Atrial Rate : 086 BPM P-R Int : 108 ms QRS Dur : 078 ms QT Int : 352 ms P-R-T Axes : 082 042 031 degrees QTc Int : 421 ms Sinus rhythm with short FL Otherwise normal ECG When compared with ECG of 28-FEB-2021 12:09, No significant change was found Referred By: Malina Cabrera Electronically Signed By:ROBINA PAINTING
[2021-12-22 14:40] LABS: MANUAL DIFF FLAG NO
[2021-12-22 14:43] LABS: Basophils Absolute Auto 0.1 X10*3/uL (0.0-0.2); Basophils Percent Auto 0.8 % (0-2); Eosinophils Absolute Auto 0.1 X10*3/uL (0.0-0.4); Eosinophils Percent Auto 1.9 % (0-4); Hematocrit 43.5 % (42.0-52.0); Hemoglobin 14.1 g/dl (14.0-18.0); Imm Gran Abs Auto 0.02 X10*3/uL (0.00-0.03); Imm Gran Pct Auto 0.3 % (0.0-0.4); Lymphocytes Absolute Auto 1.7 X10*3/uL (1.2-4.9); Lymphocytes Percent Auto 27.2 % (20-40); Mean Corpuscular HGB Conc 32.4 g/dl (31.0-36.0); Mean Corpuscular Hemoglobin 29.6 pg (27.0-33.0); Mean Corpuscular Volume 91.2 fL (80.0-98.0); Monocytes Absolute Auto 0.4 X10*3/uL (0.1-1.2); Neutrophils Absolute Auto 3.9 x10*3/uL (2.0-8.3); Neutrophils Percent Auto 62.8 % (45-73); Platelet Count 191 X10*3/uL (160-400); Red Blood Count 4.77 X10*6/uL (4.60-5.80); Red Cell Distribution Width 13.1 % (11.0-16.0); White Blood Count 6.3 X10*3/uL (4.8-10.8)
[2021-12-22 14:57] LABS: Alanine Aminotransferase 14 U/L (0-40); Alkaline Phosphatase 68 U/L (39-117); Anion Gap 15 (12-20); Aspartate Amino Transferase 11 U/L (5-37); Bilirubin Total 0.3 mg/dL (0.0-1.0); Blood Urea Nitrogen 15 mg/dL (9-16); Calcium 9.2 mg/dL (8.4-10.2); Carbon Dioxide 27 mmol/L (22-29); Chloride 105 mmol/L (96-108); Creatinine Clr Calc Pharmacy 61.8; Estimated Glomerular Filt Rate > 60; Glucose Random 125 mg/dL (60-115); Potassium 4.5 mmol/L (3.3-5.1); Sodium 142 mmol/L (135-145); Total Protein 6.6 g/dL (6.5-8.0)
[2021-12-22 15:02] LABS: Troponin-I High Sensitivity < 3.5 ng/L (<3.5-35.0)
[2021-12-22 15:04] LABS: COVID-19 Test Negative (Negative)
[2021-12-22 15:12] LABS: Lactic Acid 2.7 mmol/L (0.5-2.0)
--- NOTE | 2021-12-22 15:24 | PHA.MEDREC ---
Pharmacy Consult ? Medication Reconciliation Pharmacy has completed the medication reconciliation. Obtained from list provided by [facility].
[2021-12-22 15:55] VITALS: PULSE 80; RESP 14; O2SAT 98
[2021-12-22 16:19] LABS: Appearance Urine Clear; Color Urine Dark Yellow; Glucose Urine UA Negative (Negative); Leukocyte Esterase Urine Negative (Negative); Nitrite Urine Negative (Negative); PH 7.5 (5.0-8.0); Urine Blood Small (1+) (Negative); Urine Ketones Trace mg/dL (Negative); Urine Protein Negative (Neg-Trace)
[2021-12-22 16:37] LABS: Reflex Lactate? Lactic Acid Added
[2021-12-22 16:41] LABS: Bacteria Urine None Seen (None Seen); Hyaline Casts Urine 0-2 /LPF (0-2); Squamous Epithelial Cell Urine 0-2 /HPF (0-2); WBC Urine 0-5 /HPF (0-5)
--- NOTE | 2021-12-22 17:29 | PC.NURSE ---
PT STOOD AT END OF BED TO USE URINAL, AMB WITH ASSIST AND WALKER AROUND ROOM
[2021-12-22 17:51] VITALS: BP 130/70; PULSE 62; RESP 16; TEMP 36.6; O2SAT 97
--- NOTE | 2021-12-22 17:53 | PC.NURSE ---
pt will return to [facility]
== END 2021-12-22 18:40 | disposition home or self-care (01) ==
PROVIDERS: Nurse Practitioner Family; Emergency Provider Emergency Medicine; PCP Family Medicine
DX: R25.1 Tremor, unspecified (principal); R41.82 Altered mental status, unspecified; J90 Pleural effusion, not elsewhere classified; R06.82 Tachypnea, not elsewhere classified; R00.0 Tachycardia, unspecified; Z20.822 Contact with and (suspected) exposure to COVID-19; Z79.899 Other long term (current) drug therapy
CPT/HCPCS: 36415; 70450; 71046; 80053; 81001; 83605; 83735; 84484; 85025; 87040; 87635; 93005; 99284